=== PATIENT | male | born 1960 | race Caucasian/White ===

== ENCOUNTER 2018-01-13 09:19 | Emergency (ER) | END 2018-01-13 13:10 | disposition left against medical advice (07) ==

== ENCOUNTER 2018-01-22 07:03 | Inpatient (IN) | END 2018-01-30 14:40 | disposition home health service (06) | DRG 313 ==

== ENCOUNTER 2018-06-01 05:47 | Day surgery (SDC) | END 2018-06-01 12:03 | disposition home or self-care (01) ==

== ENCOUNTER 2018-11-04 13:09 | Inpatient (IN) | payer OTHER ==
[~2018-11-04] VITALS: Ht 167.6 cm; Wt 111.9 kg
[~2018-11-04 13:09] MED LIST: AMLO-218 PO; CEPH500C PO; GLYB5TAB3 PO; HYDROCHLOROTHIAZIDE; LANT3I SC; LISI-471 PO; NOVO3I SC
[2018-11-04] MEDS ORDERED: CEFTRIAXONE 1 GM/50 ML (PMX) 50 ML IVPB STA (13:23)
[2018-11-04] MEDS ORDERED: AZITHROMYCIN 500MG/NS (PMX) 250 ML IV STA (13:23)
[2018-11-04] MEDS ORDERED: ALBUTEROL 0.5% (NEB) 2.5 MG/0.5 ML AMP INH STA ×2 (13:23→14:37)
[2018-11-04] MEDS ORDERED: METHYLPREDNISOLONE 125 MG INJ IV ONE (13:30)
--- NOTE | 2018-11-04 14:25 | ERD ---
ER Documentation Chief Complaint Chief Complaint BIB nephew, resp distress, flushed, PNA for 2 weeks per nephew HPI This is a 58-year-old male who smokes a pack of cigarettes a day who is here for respiratory distress. The patient has been apparently treated for pneumonia for the past 2 weeks. The patient has had increased work of breathing and respiratory distress just prior to arrival. Patient denies any asthma or COPD history. Denies any fever. Patient says he has a lot of mucus in his throat but is unable to clear up. Says he keeps choking on his mucus. ROS All systems reviewed and are negative except as per history of present illness. Medications Home Meds Active Scripts Insulin Glargine* (Lantus*) 100 Unit/Ml Soln, 36 UNIT SC QHS for 30 Days, #1 VIAL Prov:BRISEYDA GIANG SENIOR OPERATOR 01/30/18 Insulin Aspart* (Novolog Insulin Pen*) 100 Unit/Ml Soln, 9 UNIT SC WITH MEALS for 30 Days, #1 VIAL Prov:BRISEYDA GIANG SENIOR OPERATOR 01/30/18 Reported Medications Amlodipine Besylate* (Amlodipine Besylate*) 10 Mg Tablet, 10 MG PO DAILY, #30 TAB 11/04/18 Hydrochlorothiazide* (Hydrochlorothiazide*) 25 Mg Tab, 25 MG PO DAILY, #30 TAB 11/04/18 Glyburide* (Glyburide*) 5 Mg Tablet, 5 MG PO DAILY, #30 TAB 11/04/18 Nitroglycerin* (Nitroglycerin* SL) 0.4 Mg Tab.subl, 0.4 MG SL Q5MIN PRN for CHEST PAIN, BOTTLE 11/04/18 Discontinued Reported Medications [Hydrochlorothiazide] No Conflict Check, DAILY 06/01/18 Cephalexin* (Cephalexin*) 500 Mg Capsule, 500 MG PO Q6, #28 CAP 06/01/18 Glyburide* (Glyburide*) 5 Mg Tablet, 5 MG PO DAILY, #30 TAB 06/01/18 Lisinopril* (Lisinopril*) 20 Mg Tablet, 20 MG PO DAILY, #30 TAB 06/01/18 Discontinued Scripts Amlodipine Besylate* (Norvasc*) 10 Mg Tablet, 10 MG PO DAILY for 30 Days, TAB Prov:AMIRA WANG MD 07/10/16 Allergies Allergies: Coded Allergies: No Known Allergy (Unverified , 11/04/18) PMhx/Soc History of Surgery: Yes (BILAT INGUINAL HERNIA, LEFT HAND SX) Anesthesia Reaction: No Hx Neurological Disorder: No Hx Respiratory Disorders: No Hx Cardiac Disorders: Yes (HTN, STOKE X6,SEIZURE 20 YRS AGO, HYPERLIPIDEMIA) Hx Psychiatric Problems: No Hx Miscellaneous Medical Probl: Yes (DM) Hx Alcohol Use: No Hx Substance Use: No Hx Tobacco Use: Yes (1pack/day) Smoking Status: Heavy tobacco smoker FmHx Family History: No coronary disease Physical Exam Vitals Vital Signs Date Temp Pulse Resp B/P (MAP) Pulse Ox O2 O2 Flow FiO2 Time Delivery Rate 11/04/18 83 100 100 15:23 11/04/18 98.1 77 20 150/97 100 BIPAP 14:30 (114) 11/04/18 80 100 100 13:34 11/04/18 98.1 75 25 175/131 89 13:09 (146) Physical Exam Const: Well-developed, well-nourished Head: Atraumatic, normocephalic Eyes: Normal Conjunctiva, PERRLA, EOMI, normal sclera, no nystagmus ENT: Normal External Ears, Nose and Mouth, moist mucus membranes. Neck: Full range of motion. No meningismus, no lymphadenopathy. Resp: Moderate to severe respiratory distress, decreased breath sounds bilaterally in the bases with s severe scattered wheezes Cardio: Tachycardia no murmurs, S1 S2 present Abd: Soft, non tender x 4, non distended. Normal bowel sounds, no guarding or rebound, no pulsitile abdominal masses or bruits Skin: No petechiae or rashes, no ecchymosis , no maculopapular rash Back: No midline or flank tenderness Ext: No cyanosis, or edema, FROM x 4, normal inspection, neurovas cularly intact x 4 Neur: Awake and alert, STR 5/5 x 4, sensation intact x 4, no focal findings, cerebellum intact Psych: Normal Mood and Affect Result Diagram: 11/04/18 1329 11/04/18 1329 Results 24 hrs Laboratory Tests Test 11/04/18 13:20 11/04/18 13:23 11/04/18 13:29 POC Venous Lactate 1.9 mmol/L Blood Gas Specimen Source Blood arterial Arterial Blood Date 11/04/2018 1:31:39 PM Drawn Arterial Blood pH 7.457 (Temp corrected) Arterial Blood pCO2 41.3 mmhg (Temp correct) Arterial Blood pO2 138.3 mmHG (Temp corrected) Arterial Blood HCO3 28.5 mmol/L Arterial Blood Base 4.2 mmol/L Excess Arterial Blood 98.5 mmHG Oxygen Saturation Mauricio Test ACCEPTAB Arterial Blood Gas Right Radial Puncture Site Arterial 2.9 % Blood Carboxyhemoglobin Arterial Blood 0.1 % Methemoglobin Blood Gas A-a O2 533.4 mmHg Differential Oxyhemoglobin Percent 95.5 % Blood Gas Temperature 37.0 C Blood Gas Respiration 16.0 Rate Blood Gas Actual 40 Respiration Rate Blood Gas Modality MASK - BIPAP FiO2 100.0 % Blood Gas Tidal Volume 424.0 mL Blood Gas Pressure 10 Support Blood Gas IPAP/EPAP Ratio 15/5 Blood Gas Notified Whom ROSALIND GARCIA Blood Gas Notified Time 11/04/2018 1:45:29 PM White Blood Count 9.7 10^3/ul Red Blood Count 5.19 10^6/ul Hemoglobin 15.9 g/dl Hematocrit 45.2 % Mean Corpuscular Volume 87.1 fl Mean Corpuscular 30.6 pg Hemoglobin Mean Corpuscular 35.2 g/dl Hemoglobin Concent Red Cell Distribution 14.7 % Width Platelet Count 349 10^3/UL Mean Platelet Volume 10.0 fl Immature Granulocytes % 0.900 % Neutrophils % 61.8 % Lymphocytes % 28.4 % Monocytes % 6.1 % Eosinophils % 2.1 % Basophils % 0.7 % Nucleated Red Blood Cells 0.0 /100WBC % Immature Granulocytes # 0.090 10^3/ul Neutrophils # 6.0 10^3/ul Lymphocytes # 2.8 10^3/ul Monocytes # 0.6 10^3/ul Eosinophils # 0.2 10^3/ul Basophils # 0.1 10^3/ul Nucleated Red Blood Cells 0.0 10^3/ul # Sodium Level 139 mmol/L Potassium Level 3.9 mmol/L Chloride Level 100 mmol/L Carbon Dioxide Level 30 mmol/L Anion Gap 9 Blood Urea Nitrogen 20 mg/dl Creatinine 0.81 mg/dl Est Glomerular Filtrat > 60 mL/min Rate mL/min Glucose Level 225 mg/dl Calcium Level 9.5 mg/dl Total Bilirubin 0.6 mg/dl Direct Bilirubin 0.00 mg/dl Indirect Bilirubin 0.6 mg/dl Aspartate Amino 55 IU/L Transf (AST/SGOT) Alanine 69 IU/L Aminotransferase (ALT/SGP T) Alkaline Phosphatase 93 IU/L Troponin I < 0.012 ng/ml B-Type Natriuretic 20 PG/ML Peptide Total Protein 9.1 g/dl Albumin 4.5 g/dl Globulin 4.60 g/dl Albumin/Globulin Ratio 0.97 Current Medications Medications Dose Sig/Btehany Start Time Status Last (Trade) Ordered Route PRN Stop Time Admin Dose Reason Admin 125 mg ONCE ONCE 11/04/18 DC 11/04/18 Methylprednis IV 13:30 13:39 olone Sodium 11/04/18 Succinate 13:31 (Solu-Medrol) Azithromycin 250 ml @ ONCE STAT 11/04/18 DC 11/04/18 250 mls/hr IV 13:23 14:42 11/04/18 14:22 Ceftriaxone 50 ml @ ONCE STAT 11/04/18 DC 11/04/18 Sodium 100 mls/hr IVPB 13:23 13:39 11/04/18 13:52 Albuterol 15 mg ONCE STAT 11/04/18 DC 11/04/18 (Proventil INH 13:23 13:28 0.5% (Neb)) 11/04/18 13:25 Albuterol 15 mg ONCE STAT 11/04/18 DC 11/04/18 (Proventil INH 14:37 15:18 0.5% (Neb)) 11/04/18 14:39 125 mg ONCE STAT 11/04/18 DC 11/04/18 Methylprednis IV 14:37 15:23 olone Sodium 11/04/18 Succinate 14:39 (Solu-Medrol) Procedures/MDM EKG: Rate/Rhythm: Normal Sinus Rhythm,NL intervals QRS, ST, QT: NORMAL [place], QRS, QT] Impression: NORMAL EKG Patient was emergently placed on BiPAP with a continuous albuterol nebulizer treatment, this therapy was effective and I was able to abort intubation Ordering MD: RIYA PINTO DO Location: E/R Room/Bed: PROCEDURE: XR Chest. CLINICAL INDICATION: Shortness of breath TECHNIQUE: Single portable view of the chest was obtained. COMPARISON: 01/26/2018 FINDINGS: Cardiac/vascular structures: Normal cardiomediastinal silhouette. Pulmonary: Right basilar airspace opacity.. No pleural effusion. No evidence of pneumothorax. Osseous structures: Normal Soft tissues: Normal IMPRESSION: Right basilar airspace opacity may represent atelectasis or pneumonia. RPTAT:AAJJ Blair Michael Physician Date Time Electronically viewed and signed by Blair Michael Physician on 11/04/2018 13:50 MH/ CC: RIYA PINTO DO [id number] Patient had 2 rounds of 15 mg albuterol continuous nebs and prednisone, Zithromax and Rocephin. Patient's respiratory status is much improved. We will need to admit him to the hospital for pulmonary therapy and IV antibiotics for pneumonia. He has a normal white blood count he is not appearing septic. He has a normal white count and no fever. He has had this infection therefore 2 weeks and is on antibiotics but unknown name. This is likely a partially treated pneumonia or the pneumonia is treated but not yet resolved. He does smoke a pack a day and has had diffuse severe wheezes throughout his lung goodman his respiratory distress may likely be due to an asthma/COPD type of picture versus infectious therefore I do not think a lactic acid is worth chasing Critical Care Time: 30 minutes Treatments/Evaluations: Close monitoring and treatment of unstable vital signs, cardiorespiratory, and neurologic status, while maintaining tight balance of fluid, respiratory, and cardiac interventions. This time includes discussing the case with the patient and the patient's family. This time does not include all procedures stated elsewhere in this record. This time also includes reviewing old records, labs and radiological studies. This time includes examining and re- examining the patient. Additionally, this time also includes arranging care with admitting and consulting physicians. Departure Diagnosis: Primary Impression: Respiratory distress Additional Impressions: Reactive airway disease Asthma severity: unspecified severity Asthma persistence: unspecified Asthma complication type: uncomplicated Qualified Codes: J45.909 - Unspecified asthma, uncomplicated Right lower lobe pulmonary infiltrate Condition: Fair RIYA PINTO DO Nov 04, 2018 14:25
[2018-11-04] MEDS ORDERED: METHYLPREDNISOLONE 125 MG INJ IV STA (14:37)
[2018-11-04] MEDS ORDERED: NITR0.4T32 SL (15:32)
[2018-11-04] MEDS ORDERED: HYDR25TA6 PO (15:33)
[2018-11-04] MEDS ORDERED: GLYB5TAB3 PO (15:33)
[2018-11-04] MEDS ORDERED: AMLO-147 PO (15:34)
[2018-11-04] MEDS ORDERED: SOD CHLORIDE 0.9% 1,000 ML IV SCH (16:42)
[2018-11-04] MEDS ORDERED: ONDANSETRON 4 MG INJ IV PRN (17:00)
[2018-11-04] MEDS ORDERED: ACETAMINOPHEN 325 MG TAB PO PRN (17:00)
[2018-11-04] MEDS ORDERED: GLUCOSE GEL 15 GRAM TUBE BUCCAL PRN (17:30)
[2018-11-04] MEDS ORDERED: DEXTROSE 50% 50 ML SYRINGE IV PRN ×2 (17:30)
[2018-11-04] MEDS ORDERED: GLUCOSE GEL 15 GRAM TUBE PO PRN ×2 (17:30)
[2018-11-04] MEDS ORDERED: GLUCAGON 1 MG INJ IM PRN (17:30)
--- NOTE | 2018-11-04 17:51 | HP ---
Date/Time of Note Date/Time of Note DATE: 11/04/18 TIME: 17:39 Assessment/Plan VTE Prophylaxis Pharmacological prophylaxis: heparin Lines/Catheters IV Catheter Type (from Nrs): Saline Lock Assessment/Plan Hospital Course 58 yo male with h/o tobacco use, dMII, obesity presents with two weeks progressive SOB in setting of LTRI symptoms as well as worsening peripheral edema SOB: - Likely LTRI induced bronchospasm, pulmonary edema may also be contributing. Suspect he has underlying COPD given heavy smoking history - Prednisone daily, nebs q6h - Levaquin course - Lasix once, unlikely chf though with normal BNP but confounded by obese habitus DMII: - Basal/bolus insulin Tobacco use d/o: - Nicotine patch Discharge pending clinical course Result Diagram: 11/04/18 1329 11/04/18 1329 Results 24hrs Laboratory Tests Test 11/04/18 13:20 11/04/18 13:23 11/04/18 13:29 POC Venous Lactate 1.9 Blood Gas Specimen Blood arterial Source Arterial Blood Date 11/04/2018 1:31:39 PM Drawn Arterial Blood pH 7.457 H (Temp corrected) Arterial Blood pCO2 41.3 (Temp correct) Arterial Blood pO2 138.3 H (Temp corrected) Arterial Blood HCO3 28.5 H Arterial Blood Base 4.2 H Excess Arterial Blood 98.5 H Oxygen Saturation Mauricio Test ACCEPTAB Arterial Blood Gas Right Radial Puncture Site Arterial 2.9 Blood Carboxyhemoglobin Arterial Blood 0.1 Methemoglobin Blood Gas A-a O2 533.4 H Differential Oxyhemoglobin Percent 95.5 Blood Gas Temperature 37.0 Blood Gas Respiration 16.0 Rate Blood Gas Actual 40 Respiration Rate Blood Gas Modality MASK - BIPAP FiO2 100.0 Blood Gas Tidal Volume 424.0 Blood Gas Pressure 10 Support Blood Gas IPAP/EPAP Ratio 15/5 Blood Gas Notified Whom ROSALIND GARCIA Blood Gas Notified Time 11/04/2018 1:45:29 PM White Blood Count 9.7 Red Blood Count 5.19 Hemoglobin 15.9 Hematocrit 45.2 Mean Corpuscular Volume 87.1 Mean Corpuscular 30.6 Hemoglobin Mean Corpuscular 35.2 Hemoglobin Concent Red Cell Distribution 14.7 H Width Platelet Count 349 Mean Platelet Volume 10.0 Immature Granulocytes % 0.900 H Neutrophils % 61.8 Lymphocytes % 28.4 Monocytes % 6.1 Eosinophils % 2.1 Basophils % 0.7 Nucleated Red Blood Cells 0.0 % Immature Granulocytes # 0.090 H Neutrophils # 6.0 Lymphocytes # 2.8 Monocytes # 0.6 Eosinophils # 0.2 Basophils # 0.1 Nucleated Red Blood Cells 0.0 # Sodium Level 139 Potassium Level 3.9 Chloride Level 100 Carbon Dioxide Level 30 Anion Gap 9 Blood Urea Nitrogen 20 Creatinine 0.81 Est Glomerular Filtrat > 60 Rate mL/min Glucose Level 225 H Calcium Level 9.5 Total Bilirubin 0.6 Direct Bilirubin 0.00 Indirect Bilirubin 0.6 Aspartate Amino 55 H Transf (AST/SGOT) Alanine 69 Aminotransferase (ALT/SGP T) Alkaline Phosphatase 93 Troponin I < 0.012 B-Type Natriuretic 20 Peptide Total Protein 9.1 H Albumin 4.5 Globulin 4.60 H Albumin/Globulin Ratio 0.97 HPI/ROS Admit Date/Time Admit Date/Time Hx of Present Illness 58 yo male with h/o DMII, obesity, heavy smoking h/o presents with two weeks progressive SOB Patient became sick with URI about two weeks ago. Over that time he has developed progressive dyspnea. Today felt he was suffocating. Arrived in ED in extremis. Given bipap, steroids, nebulizers. Now much better but still SOB PMH/Family/Social Past Medical History Medical History: diabetes Medications Current Medications Ondansetron HCl (Zofran Inj) 4 mg ER BRIDGE PRN IV NAUSEA AND/OR VOMITING; Start 11/04/18 at 17:00; Stop 11/05/18 at 16:59 Acetaminophen (Tylenol Tab) 650 mg ER BRIDGE PRN PO MILD PAIN(1-3)OR ELEVATED TEMP; Start 11/04/18 at 17:00; Stop 11/05/18 at 16:59 Prednisone (Prednisone) 40 mg DAILY PO ; Start 11/05/18 at 09:00 Albuterol/ Ipratropium (Duoneb) 3 ml Q6H RESP THERAPY HHN ; Start 11/04/18 at 20:00 Insulin Glargine (Lantus) 15 units DAILY@2000 SC ; Start 11/04/18 at 20:00 Insulin Aspart (Novolog Insulin Pen) NOVOLOG *MODERATE* ALGORITHM WITH MEALS BEDTIME SC ; Start 11/04/18 at 18:00 Miscellaneous Information 1 ea NOTE XX ; Start 11/04/18 at 17:30 Glucose (Glutose) 15 gm Q15M PRN PO DECREASED GLUCOSE; Start 11/04/18 at 17:30 Glucose (Glutose) 22.5 gm Q15M PRN PO DECREASED GLUCOSE; Start 11/04/18 at 17:30 Dextrose (D50w Syringe) 25 ml Q15M PRN IV DECREASED GLUCOSE; Start 11/04/18 at 17:30 Dextrose (D50w Syringe) 50 ml Q15M PRN IV DECREASED GLUCOSE; Start 11/04/18 at 17:30 Glucagon (Glucagen) 1 mg Q15M PRN IM DECREASED GLUCOSE; Start 11/04/18 at 17:30 Glucose (Glutose) 15 gm Q15M PRN BUCCAL DECREASED GLUCOSE; Start 11/04/18 at 17:30 Coded Allergies: No Known Allergy (Unverified , 11/04/18) Past Surgical History Past Surgical Hx: no surgical history Family History Significant Family History: no pertinent family hx, diabetes, hypertension Social History Alcohol Use: none Smoking Status: Current every day smoker Drug Use: none Exam/Review of Systems Vital Signs Vitals Vital Signs Date Temp Pulse Resp B/P (MAP) Pulse Ox O2 O2 Flow FiO2 Time Delivery Rate 11/04/18 73 100 50 17:14 11/04/18 14 144/77 BIPAP 16:46 (99) 11/04/18 98.1 14:30 Exam Exam Obese mild Tachypneic Mild distress Nonlabored Lungs with expiratory wheeze, poor air entry ++ JVD Obese belly ++ Peripheral edema b/l DAVIS LIMON MD Nov 04, 2018 17:50
[2018-11-04] MEDS ORDERED: FUROSEMIDE 40 MG INJ IV ONE (18:00)
[2018-11-04] MEDS ORDERED: SOD CHLORIDE 0.9% 100 ML ONE (18:08)
[2018-11-04] MEDS ORDERED: IOHEXOL 100 ML ONE (18:08)
[2018-11-04 19:14] VITALS: PULSE 91
[2018-11-04] MEDS: ALBUTEROL/IPRATROPIUM (NEB) 3 ML AMP HHN SCH (19:30)
[2018-11-04 19:47] VITALS: BP 179/83; PULSE 84; RESP 19
[2018-11-04 19:54] VITALS: PULSE 98
[2018-11-04 20:00] VITALS: PULSE 100; Ht 167.6 cm; Wt 111.9 kg
[2018-11-04] MEDS ORDERED: INSULIN GLARGINE [LANTus] (100 UNITS/ML) SYG SC SCH ×3 (20:00→21:00)
--- NOTE | 2018-11-04 21:04 | NUR ---
Procedure Ordered: CHEST ANGIO Reason for Exam Today: SOB Previous Exams: Allergies: NKA Current Medications Taken: Glucophage ( ) Metformin ( ) Previous reaction to contrast media: Yes ( ) No ( ) : Yes ( ) No (X ) Asthma: Yes ( ) No (X ) Diabetes: Yes (X ) No ( ) Myeloma: Yes ( ) No (X ) Heart Disease: Yes (X ) No ( ) Cardiac Disease: Yes (X ) No (X ) Kidney Disease: Yes ( ) No (X ) Vascular Disease: Yes ( ) No (X ) Patient Teaching done: Yes (X ) No ( ) Rn Sane Used: Yes ( ) No ( ) Name of Rn Sane: Language Used: As part of the test requested by your doctor, contrast media may be injected into your vein while the x-rays are being taken. Occasionally, reactions from IV contrast may occur. The physician and staff of this hospital are trained to treat these reactions. Select the type of Contrast that will be given to patient: Isovue 300 ( ) Isovue 370 ( ) Visipaque ( ) Cystografin ( ) Gastrographin ( ) Redi-cat ( ) Volumen ( ) OMNIPAQUE 350 (X) Amount of contrast to be given: 98 ML IV (X ) PO ( ) Date given: 11/04/18 Lab Values: BUN: 20 Creatinine: 0.81 Reason why contrast cannot be given: Location of patient pre-procedure: ER 20 Location of patient post procedure: ER 20
[2018-11-04] MEDS: AMLODIPINE 10 MG TAB PO SCH (21:07)
[2018-11-04 21:08] VITALS: PULSE 86
[2018-11-04] MEDS: HYDROCHLOROTHIAZIDE 25 MG TAB PO SCH (21:08)
--- NOTE | 2018-11-04 21:14 | NUR ---
Received new order to add another 2 units of novolog for BS of 323. Order noted and will carry out. Addendum: 11/05/18 at 0217 by ERIC PATEL RN received new order to give ativan 0.5 mg x1 PRN for anxiety. order noted and will carry out.
[2018-11-04] MEDS: INSULIN ASPART [NOVOLOG] 3 ML PEN SC SCH (21:17)
[2018-11-04] MEDS ORDERED: LORAZEPAM 0.5 MG TAB PO ONE (21:30)
[2018-11-04] MEDS ORDERED: INSULIN ASPART [NOVOLOG] 3 ML PEN SC ONE (21:30)
[2018-11-04 23:42] VITALS: PULSE 90
[2018-11-05] VITALS (14 sets, daily range): BP systolic 126–163; BP diastolic 53–77; PULSE 55–109; RESP 17–22
--- NOTE | 2018-11-05 00:19 | NUR ---
PATIENT WAS SO ANXIOUS AND TELLING RN TO TAKE OFF THE BIPAP, THIS HAS BEEN THE SECOND TIME THAT HE REQUESTED TO TAKE OFF THE BIPAP. HE SAID HE MIGHT BE CLAUSTROPHOBIC AND FEELS ANXIOUS WHENEVER HE IS ON THE BIPAP. PUT HIM ON 3LPM OXYGEN VIA NASAL CANNULA SATURATING AT 93%, RT AWARE. WILL CONTINUE MONITORING.
--- NOTE | 2018-11-05 02:14 | NUR ---
rechecked patient's blood sugar and it was 333. Informed Dr. Nuno, received new order.
[2018-11-05] MEDS ORDERED: INSULIN ASPART [NOVOLOG] 3 ML PEN SC ONE (02:30)
[2018-11-05] MEDS: ALBUTEROL/IPRATROPIUM (NEB) 3 ML AMP HHN SCH ×4 (03:04→19:39)
--- NOTE | 2018-11-05 06:33 | NUR ---
Patient arrived during change of shift last evening. Awake, alert and oriented x4. No pressure wounds except some redness on Both lower extremities and a skin tear on the back of the right lower leg. Patient was on and off on BIPAP, requesting to be taken off because he feels anxious on it. Finally patient is on O2 at 3LPM via nasal cannula and is saturating at 95%. For 2D ECHO today.
[2018-11-05] MEDS: INSULIN ASPART [NOVOLOG] 3 ML PEN SC SCH ×7 (08:00→21:00)
[2018-11-05] MEDS ORDERED: INSULIN ASPART [NOVOLOG] 3 ML PEN SC SCH (08:00)
[2018-11-05] MEDS ORDERED: FUROSEMIDE 20 MG INJ IV SCH (08:00)
[2018-11-05] MEDS: HYDROCHLOROTHIAZIDE 25 MG TAB PO SCH (09:02)
[2018-11-05] MEDS: AMLODIPINE 10 MG TAB PO SCH (09:03)
[2018-11-05] MEDS: predniSONE 20 MG TAB PO SCH (09:03)
--- NOTE | 2018-11-05 09:12 | NUR ---
11/04/18 2100 Blood sugar was not administered on EMAR. When AM dose was scanned, it automatically administered on the previous time.
[2018-11-05] MEDS: NICOTINE (21 MG/24 HR) PATCH TRANSDERM SCH (13:43)
--- NOTE | 2018-11-05 13:59 | PN ---
Date/Time of Note Date/Time of Note DATE: 11/05/18 TIME: 13:57 Assessment/Plan VTE Prophylaxis Risk score (from Nsg)>0 risk: 1 SCD applied (from Nsg): Yes Pharmacological prophylaxis: heparin Lines/Catheters IV Catheter Type (from Nrsg): Saline Lock Assessment/Plan Hospital Course 58 yo male with h/o tobacco use, dMII, obesity presents with two weeks progressive SOB in setting of LTRI symptoms as well as worsening peripheral edema SOB: - Likely LTRI induced bronchospasm. Suspect he has underlying COPD given heavy smoking history - Prednisone daily, nebs q6h - CT negative for infiltrate and no phlegm, will hold abx Peripheral edema 2/2 venous stasis - Gentle lasix for edema DMII: - Basal/bolus insulin Tobacco use d/o: - Nicotine patch Discharge pending clinical course Result Diagram: 11/04/18 1329 11/04/18 1329 Results 24hrs Laboratory Tests Test 11/04/18 21:05 11/04/18 22:38 11/05/18 02:10 11/05/18 08:01 Bedside Glucose 323 H 343 H 333 H 232 H Test 11/05/18 12:28 Bedside Glucose 243 H Subjective 24 Hr Interval Summary Free Text/Dictation Breathing improving CT-A negative for PE or infiltrate Still hypoxic Exam/Review of Systems Vital Signs Vitals Vital Signs Date Temp Pulse Resp B/P (MAP) Pulse Ox O2 O2 Flow FiO2 Time Delivery Rate 11/05/18 84 12:00 11/05/18 98.5 17 130/65 94 11:13 (86) 11/05/18 Nasal 2.0 09:02 Cannula 11/04/18 50 23:42 Intake and Output 11/04/18 11/04/18 11/05/18 1515:00 23:00 07:00 IntakeIntake Total 50 ml 1000 ml OutputOutput Total 1300 ml BalanceBalance 50 ml -300 ml Exam Obese A bit plethoric Breathing comfortably, still with expiratory wheezing Perihperal edema Medications Medications Current Medications Prednisone (Prednisone) 40 mg DAILY PO Last administered on 11/05/18at 09:03; Admin Dose 40 MG; Start 11/05/18 at 09:00 Albuterol/ Ipratropium (Duoneb) 3 ml Q6H RESP THERAPY HHN Last administered on 11/05/18at 08:51; Admin Dose 3 ML; Start 11/04/18 at 20:00 Insulin Aspart (Novolog Insulin Pen) NOVOLOG *MODERATE* ALGORITHM WITH MEALS BEDTIME SC Last administered on 11/05/18at 12:36; Admin Dose 6 UNIT; Start 11/04/18 at 18:00 Miscellaneous Information 1 ea NOTE XX ; Start 11/04/18 at 17:30 Glucose (Glutose) 15 gm Q15M PRN PO DECREASED GLUCOSE; Start 11/04/18 at 17:30 Glucose (Glutose) 22.5 gm Q15M PRN PO DECREASED GLUCOSE; Start 11/04/18 at 17:30 Dextrose (D50w Syringe) 25 ml Q15M PRN IV DECREASED GLUCOSE; Start 11/04/18 at 17:30 Dextrose (D50w Syringe) 50 ml Q15M PRN IV DECREASED GLUCOSE; Start 11/04/18 at 17:30 Glucagon (Glucagen) 1 mg Q15M PRN IM DECREASED GLUCOSE; Start 11/04/18 at 17:30 Glucose (Glutose) 15 gm Q15M PRN BUCCAL DECREASED GLUCOSE; Start 11/04/18 at 17:30 Amlodipine Besylate (Norvasc) 10 mg DAILY PO Last administered on 11/05/18at 09:03; Admin Dose 10 MG; Start 11/04/18 at 20:00 Hydrochlorothiazide (Hydrochlorothiazide) 25 mg DAILY PO Last administered on 11/05/18at 09:02; Admin Dose 25 MG; Start 11/04/18 at 20:00 Influenza Virus Vaccine Quadrival (Fluzone) 0.5 ml ONCE ONCE IM* ; Start 11/06/18 at 10:00; Stop 11/06/18 at 10:01 Insulin Aspart (Novolog Insulin Pen) 12 unit WITH MEALS SC Last administered on 11/05/18at 12:35; Admin Dose 12 UNIT; Start 11/05/18 at 12:00 Insulin Glargine (Lantus) 35 units DAILY@2000 SC ; Start 11/05/18 at 20:00 Nicotine (Nicoderm 21 Mg/ 24hr) 1 patch DAILY TRANSDERM Last administered on 11/05/18at 13:43; Admin Dose 1 PATCH; Start 11/05/18 at 11:30 Empaglifozin (Jardiance) 10 mg DAILY@08 PO ; Start 11/05/18 at 15:00 DAVIS LIMON MD Nov 05, 2018 13:59
[2018-11-05] MEDS: EMPAGLIFLOZIN 10 MG TABLET PO SCH (15:46)
[2018-11-05] MEDS: FUROSEMIDE 20 MG TAB PO SCH (15:46)
[2018-11-05] MEDS ORDERED: LORAZEPAM 1 MG TAB PO ONE ×2 (17:30→18:00)
[2018-11-05] MEDS ORDERED: LORAZEPAM 4 MG/ML VIAL IV ONE (18:30)
--- NOTE | 2018-11-05 18:51 | NUR ---
EOSS Pt remained A/O x 4, denied pain all shift. Pt had an episode of panic attack that lasted for 1 hour. Pt was hyperventilating and crying out. C/o chest pressure that was not related to chest pain. Ativan 1 mg PO was administered. Dr. Leggett made aware, assessed patient at bedside, ordered another 1 mg IV once. Pt is currently Calm, resting comfortably, friends at bedside. Will endorse care to oncoming RN.
[2018-11-05] MEDS ORDERED: INSULIN GLARGINE [LANTus] (100 UNITS/ML) SYG SC SCH (20:00)
--- NOTE | 2018-11-05 20:26 | RADRPT ---
Echocardiogram Report Patient Name: NELSON PARISH Gender: Male Date: 1960 Study Date: 05-Nov-2018 Skidder Runner: Julian Cota [facility] Location: 626-A Ref. Physician: DAVIS LIMON Quality: Technically Difficult Study Procedures: Transthoracic echocardiogram with complete 2D, M-Mode, and doppler examination. Indications: Congestive Heart Failure. 2D/M Mode Doppler Measurement Value Normal Ranges Measurement Value Normal Ranges LVIDd 2D 3.7 3.5 - 5.6 cm AV Peak Harley 1.7 m/sec LVIDs 2D 2.6 2.1 - 4.1 cm AV Peak PG 12.0 mmHg FS 2D 29.9 % LVOT Peak Harley 1.3 m/sec LVPWd 2D 1.3 0.6 - 1.1 cm LVOT Peak PG 7.0 mmHg IVSd 2D 1.5 0.6 - 1.1 cm MV E Peak Harley 0.9 m/sec IVS/LVPW 2D 1.2 MV A Peak Harley 1.4 m/sec AoR Diam 2D 3.5 2.0 - 3.7 cm MV E/A 0.6 LA/Ao 2D 1 0 - 1 MV Decel Time 165 msec EDV 2D 49.8 cm3 MV E/A 0.6 ESV 2D 17.2 cm3 TR Peak Harley 2.1 m/sec LA Dimen 2D 3.9 2.3 - 4.0 cm TR Peak PG 17.0 mmHg RVSP 27.0 mmHg Findings Left Ventricle: Normal left ventricular systolic function. Normal left ventricular cavity size. Sigmoid septum. Mild concentric left ventricular hypertrophy. Ejection fraction is visually estimated at 65 %. Tissue Doppler/Mitral Doppler indices are consistent with impaired relaxation (Stage I diastolic dysfunction). Right Ventricle: Normal right ventricular size. Normal right ventricular systolic function. Left Atrium: The left atrium is normal in size. Right Atrium: The right atrium is normal in size. Mitral Valve: Mild mitral leaflet calcification. Mild mitral annular calcification. Trace mitral regurgitation. Aortic Valve: No significant aortic stenosis or insufficiency. Aortic cusps appear mildly calcified. No aortic regurgitation. Tricuspid Valve: Normal appearance of the tricuspid valve. Estimated peak PA systolic pressure 27 mmHg. There is mild tricuspid regurgitation. Pulmonic Valve: Pulmonic valve not well visualized. There is trace pulmonic regurgitation. Pericardium: Normal pericardium with no significant pericardial effusion. Aorta: Normal aortic root. IVC: Normal size and normal respiratory collapse consistent with normal right atrial pressure. Conclusions Normal left ventricular systolic function. Normal left ventricular cavity size. Sigmoid septum. Mild concentric left ventricular hypertrophy. Ejection fraction is visually estimated at 65 %. Tissue Doppler/Mitral Doppler indices are consistent with impaired relaxation (Stage I diastolic dysfunction). Mild mitral leaflet calcification. Mild mitral annular calcification. Trace mitral regurgitation. No significant aortic stenosis or insufficiency. Aortic cusps appear mildly calcified. No aortic regurgitation. Normal appearance of the tricuspid valve. Estimated peak PA systolic pressure 27 mmHg. There is mild tricuspid regurgitation. Electronically Signed By: Mario Alberto Guallpa 05-Nov-2018 20:25:44 -0800 Patient Name: NELSON PARISH Study Date: 05-Nov-2018 [id number]
[2018-11-06] VITALS (8 sets, daily range): BP systolic 102–166; BP diastolic 62–80; PULSE 78–100; RESP 18–20
[2018-11-06] MEDS: ALBUTEROL/IPRATROPIUM (NEB) 3 ML AMP HHN SCH (01:20)
[2018-11-06] MEDS: FUROSEMIDE 20 MG TAB PO SCH (05:23)
--- NOTE | 2018-11-06 06:53 | NUR ---
Pt AOx4, ambulatory but is currently on complete bedrest, pt educated about being on bedrest. VS Stable. Sinus rhythm to SFritzTachy on monitor No complaints of pain Glucose 249 at 1999. Pt also mentioned he had a history of stroke and heart attack. Pt says [facility]. WOCN consult placed. Hourly rounding done Needs attended
[2018-11-06] MEDS: NICOTINE (21 MG/24 HR) PATCH TRANSDERM SCH (08:15)
[2018-11-06] MEDS: AMLODIPINE 10 MG TAB PO SCH (08:16)
[2018-11-06] MEDS: HYDROCHLOROTHIAZIDE 25 MG TAB PO SCH (08:16)
[2018-11-06] MEDS: predniSONE 20 MG TAB PO SCH (08:16)
[2018-11-06] MEDS: EMPAGLIFLOZIN 10 MG TABLET PO SCH (08:17)
[2018-11-06] MEDS: INSULIN ASPART [NOVOLOG] 3 ML PEN SC SCH ×4 (08:24→12:54)
[2018-11-06] MEDS ORDERED: ALPRAZOLAM 0.5 MG TAB PO PRN (10:30)
[2018-11-06] MEDS ORDERED: LINAGLIPTIN 5 MG TABLET PO SCH (10:30)
[2018-11-06] MEDS ORDERED: ALBU8.5H8 INH (11:48)
[2018-11-06] MEDS ORDERED: BUDE6HFA INHALATION (11:48)
[2018-11-06] MEDS ORDERED: PRED20TA PO (11:48)
[2018-11-06] MEDS ORDERED: NICO-546 TD (11:49)
--- NOTE | 2018-11-06 11:50 | PDOCDIS ---
Discharge Instructions DIAGNOSIS Discharge Diagnosis COPD exacerbation CONDITION [id number] Patient Condition: [id number] Stable HOME CARE INSTRUCTIONS: [id number] Special Diet: Evlkg5d carb controlled diet FOLLOW UP/APPOINTMENTS Follow-up Plan See your doctor very soon or make an appointment with a military equipment specialist (lung specialist). You likely have COPD and require testing and treatment for this DAVIS LIMON MD Nov 06, 2018 11:50
--- NOTE | 2018-11-06 13:15 | NUR ---
SS Note: SS Consult SWer met w/ pt at bedside to clarify his d/c disposition. Pt presents as clam and congenial towards SWer, acknowledged reason for visiting and stated "I don't need any SS assistance, I'm going back to my previous living arrangement." SWer acknowledged, thanked pt for his time and updated RN. Pt getting dressed, awaiting d/c papers. CM aware
--- NOTE | 2018-11-06 13:34 | DS ---
Date/Time of Note Date/Time of Note DATE: 11/06/18 TIME: 13:32 Discharge Summary Admission/Discharge Info Admit Date/Time Nov 04, 2018 at 16:43 Discharge Date/Time Discharge Diagnosis COPD exacerbation Patient Condition: Stable Hx of Present Illness 58 yo male with h/o DMII, obesity, heavy smoking h/o presents with two weeks progressive SOB Patient became sick with URI about two weeks ago. Over that time he has developed progressive dyspnea. Today felt he was suffocating. Arrived in ED in extremis. Given bipap, steroids, nebulizers. Now much better but still SOB Hospital Course 58 yo male with h/o tobacco use, dMII, obesity presents with two weeks progressive SOB in setting of LTRI symptoms as well as worsening peripheral edema Exam was notable for diffuse wheezing consistent with COPD exacerbation. He was treated with steroids and bronchodilators and symptoms resolved. CT-A was negative for PE or infiltrate. His hyperglycemia was treated with insulin. He was advised to have pulmonary function testing performed as an outpatient. Smoking cessation was advised and nicotine patch was prescribed Home Meds Active Scripts Nicotine* (Nicotine* Patch) 21 mg/day Patch, 1 EACH TD DAILY for 60 Days, #60 PATCH 5 Refills Prov:DAVIS LIMON MD 11/06/18 Albuterol Sulfate* (Proair HFA*) 8.5 Gm Hfa.aer.ad, 2 PUFF INH Q4H PRN for WHEEZING AND SOB, #1 INHALER 5 Refills Prov:DAVIS LIMON MD 11/06/18 Budesonide-Formoterol Fumarate* (Symbicort*) 160-4.5 Hfa.aer.ad, 2 PUFF INHALATION BID, #1 EACH 5 Refills Prov:DAVIS LIMON MD 11/06/18 Prednisone* (Prednisone*) 20 Mg Tab, 40 MG PO DAILY for 3 Days, #3 TAB Prov:DAVIS LIMON MD 11/06/18 Insulin Glargine* (Lantus*) 100 Unit/Ml Soln, 36 UNIT SC QHS for 30 Days, #1 VIAL Prov:BRISEYDA GIANG NP 01/30/18 Insulin Aspart* (Novolog Insulin Pen*) 100 Unit/Ml Soln, 9 UNIT SC WITH MEALS for 30 Days, #1 VIAL Prov:BRISEYDA GIANG NP 01/30/18 Reported Medications Amlodipine Besylate* (Amlodipine Besylate*) 10 Mg Tablet, 10 MG PO DAILY, #30 TAB 11/04/18 Hydrochlorothiazide* (Hydrochlorothiazide*) 25 Mg Tab, 25 MG PO DAILY, #30 TAB 11/04/18 Glyburide* (Glyburide*) 5 Mg Tablet, 5 MG PO DAILY, #30 TAB 11/04/18 Nitroglycerin* (Nitroglycerin* SL) 0.4 Mg Tab.subl, 0.4 MG SL Q5MIN PRN for CHEST PAIN, BOTTLE 11/04/18 Discontinued Reported Medications [Hydrochlorothiazide] No Conflict Check, DAILY 06/01/18 Cephalexin* (Cephalexin*) 500 Mg Capsule, 500 MG PO Q6, #28 CAP 06/01/18 Glyburide* (Glyburide*) 5 Mg Tablet, 5 MG PO DAILY, #30 TAB 06/01/18 Lisinopril* (Lisinopril*) 20 Mg Tablet, 20 MG PO DAILY, #30 TAB 06/01/18 Discontinued Scripts Amlodipine Besylate* (Norvasc*) 10 Mg Tablet, 10 MG PO DAILY for 30 Days, TAB Prov:AMIRA WANG MD 07/10/16 Follow-up Plan See your doctor very soon or make an appointment with a soil sampler (lung specialist). You likely have COPD and require testing and treatment for this Primary Care Provider Mary Becerra DO Pending Labs Laboratory Tests Test 11/05/18 18:10 11/05/18 20:28 11/06/18 02:55 11/06/18 04:53 Bedside 287 249 147 Glucose mg/dL (70-220) mg/dL (70-220) mg/dL (70-220) White Blood 19.7 Count 10^3/ul (4.8-1 0.8) Red Blood 5.04 Count 10^6/ul (4.70- 6.10) Hemoglobin 15.3 g/dl (14.0-18. 0) Hematocrit 45.0 % (42.0-52.0) Mean 89.3 Corpuscular fl (82.0-101.0 Volume ) Mean 30.4 Corpuscular pg (29.0-33.0) Hemoglobin Mean 34.0 Corpuscular g/dl (32.0-37. Hemoglobin Conc 0) ent Red Cell 14.7 Distribution % (11.5-14.5) Width Platelet Count 362 10^3/UL (140-4 15) Mean Platelet 9.9 Volume fl (7.4-10.4) Immature 0.700 Granulocytes % % (0.001-0.429 ) Neutrophils % 85.5 % (39.0-77.0) Lymphocytes % 9.3 % (15.0-51.0) Monocytes % 4.2 % (0.0-11.0) Eosinophils % 0.1 % (0.0-7.0) Basophils % 0.2 % (0.0-2.0) Nucleated Red 0.0 Blood Cells % /100WBC (0.0-0 .0) Immature 0.140 Granulocytes # 10^3/ul (0.0-0 .031) Neutrophils # 16.9 10^3/ul (1.6-7 .5) Lymphocytes # 1.8 10^3/ul (0.8-2 .9) Monocytes # 0.8 10^3/ul (0.3-0 .9) Eosinophils # 0.0 10^3/ul (0.0-0 .5) Basophils # 0.0 10^3/ul (0.0-0 .1) Nucleated Red 0.0 Blood Cells # 10^3/ul (0.0-0 .0) Sodium Level 147 mmol/L (135-14 4) Potassium 3.6 Level mmol/L (3.5-5. 1) Chloride Level 101 mmol/L (97-110 ) Carbon Dioxide 34 Level mmol/L (21-31) Anion Gap 12 (5-13) Blood Urea 35 Nitrogen mg/dl (7-20) Creatinine 1.13 mg/dl (0.61-1. 24) Est Glomerular > 60 Filtrat mL/min (>60) Rate mL/min Glucose Level 153 mg/dl (70-220) Hemoglobin A1c 5.9 % (0-5.9) Calcium Level 9.7 mg/dl (8.4-10. 2) Test 11/06/18 07:43 11/06/18 12:02 Bedside 241 346 Glucose mg/dL (70-220) mg/dL (70-220) DAVIS LIMON MD Nov 06, 2018 13:34
--- NOTE | 2018-11-06 14:07 | NUR ---
WOUND CONSULT NOTE: 58 year old male known to the services of Dr. Prasad and Dr. Conrad presented for shortness of breath and possible COPD exacerbation given his current smoking history. Patient is also a known diabetic and has been followed at [facility] [place] last seen by on 10/29/18 with resolved diabetic foot wounds. Patient was instructed to wear compression stockings which he states has been complying. Patient reports has an upcoming vascular exam w/ Dr. Conrad in the next few weeks. On exam there is evidence of bilateral 1/2+ edema with brown hyperpigmentation and hemosiderin staining and hyperkeratotic skin with scattered dry stable scabs. Patient is ambulatory and can turn freely. Currently on nasal cannula with plans of discharge today ASSESSMENT AND RECOMMENDATIONS: 1. Right posterior leg open partial thickness blister vs skin tear which is dry without any drainage 2. Left anterolateral lower leg intact serum filled bullae due to lower extremity edema. Condition not documented on admission -If patient remains in-house, wash area with mild soap and water. Smooth down the skin flap that remains. May apply small amount of Xeroform dressing, cover with kerlix roll and secure with tape. -Reduction of edema and and corrected fluid balance per medical management to reduce size and recurrence of bullae. -Recommend to elevate legs while in bed to reduce edema -Patient was instructed to wear his compression stockings once discharged as per instructions of DPM/Vascular and to follow up with [facility] center if open wounds noted Patient was seen and examined and plan of care and recommendations were discussed with primary RNTom. Thank you Monica Plata, RN, MSN, CCRN, C
== END 2018-11-06 14:06 | disposition home or self-care (01) | DRG 192 ==
LOC: E/R 13:09 → 6WM 16:43
PROVIDERS: ADMIT Internal Medicine; ATTEND Internal Medicine
PROC: 4A033R1 Measurement of Arterial Saturation, Peripheral, Percutaneous Approach (ICD-10-PCS; principal; 2018-11-04)
PROC: 3E0234Z Introduction of Serum, Toxoid and Vaccine into Muscle, Percutaneous Approach (ICD-10-PCS; 2018-11-06)
DX: J44.1 Chronic obstructive pulmonary disease with (acute) exacerbation (principal); E11.9 Type 2 diabetes mellitus without complications; E78.5 Hyperlipidemia, unspecified; I10 Essential (primary) hypertension; E66.9 Obesity, unspecified; F17.210 Nicotine dependence, cigarettes, uncomplicated; Z79.4 Long term (current) use of insulin; Z86.73 Personal history of transient ischemic attack (TIA), and cerebral infarction without residual deficits; Z23 Encounter for immunization
CPT/HCPCS: 36415; 36600; 71045; 71275; 80048; 80053; 82803; 82962; 83036; 83605; 83880; 84484; 85025; 87040; 90686; 93005; 93306; 94640; 94644; 94645; 94660; 96365; 96375; 96376; J0456; J0696; J1815; J1940; J2060; J2930; J7030; J7512; Q9967

== ENCOUNTER 2018-11-24 10:39 | Inpatient (IN) | payer OTHER ==
[~2018-11-24] VITALS: Ht 175.3 cm; Wt 90.0 kg
[~2018-11-24 10:39] MED LIST changes: +ALBU8.5H8 INH; +AMLO-147 PO; -AMLO-218 PO; +BUDE6HFA INHALATION; -CEPH500C PO; +HYDR25TA6 PO; -HYDROCHLOROTHIAZIDE; -LISI-471 PO; +NICO-546 TD; +NITR0.4T32 SL; +PRED20TA PO
[2018-11-24] MEDS ORDERED: ALBUTEROL 0.083% (NEB) 2.5 MG/3 ML AMP HHN STA (10:51)
[2018-11-24] MEDS ORDERED: ALPR0.254 PO (11:34)
--- NOTE | 2018-11-24 13:38 | ERD ---
ER Documentation Chief Complaint Chief Complaint SOB X FEW WEEKS HPI 58-year-old male presents to the emergency department by private vehicle complaining of shortness of breath. Patient has a history of COPD with multiple admissions. Patient states that he has been intermittently compliant with his medications. Recently, has become increasingly short of breath. He reports no chest pain or palpitations, no fevers or sputum production. He reports no hemoptysis. ROS All systems reviewed and are negative except as per history of present illness. Medications Home Meds Active Scripts Nicotine* (Nicotine* Patch) 21 mg/day Patch, 1 EACH TD DAILY for 60 Days, #60 PATCH 5 Refills Prov:DAVIS LIMON MD 11/06/18 Albuterol Sulfate* (Proair HFA*) 8.5 Gm Hfa.aer.ad, 2 PUFF INH Q4H PRN for WHEEZING AND SOB, #1 INHALER 5 Refills Prov:DAVIS LIMON MD 11/06/18 Budesonide-Formoterol Fumarate* (Symbicort*) 160-4.5 Hfa.aer.ad, 2 PUFF INHALATION BID, #1 EACH 5 Refills Prov:DAVIS LIMON MD 11/06/18 Insulin Glargine* (Lantus*) 100 Unit/Ml Soln, 36 UNIT SC QHS for 30 Days, #1 VIAL Prov:BRISEYDA GIANG NAIL EXPERT 01/30/18 Insulin Aspart* (Novolog Insulin Pen*) 100 Unit/Ml Soln, 9 UNIT SC WITH MEALS for 30 Days, #1 VIAL Prov:BRISEYDA GIANG NAIL EXPERT 01/30/18 Reported Medications Alprazolam* (Alprazolam*) 0.25 Mg Tablet, 0.25 MG PO DAILY PRN for ANXIETY, TAB 11/24/18 Amlodipine Besylate* (Amlodipine Besylate*) 10 Mg Tablet, 10 MG PO DAILY, #30 TAB 11/04/18 Hydrochlorothiazide* (Hydrochlorothiazide*) 25 Mg Tab, 25 MG PO DAILY, #30 TAB 11/04/18 Glyburide* (Glyburide*) 5 Mg Tablet, 5 MG PO DAILY, #30 TAB 11/04/18 Nitroglycerin* (Nitroglycerin* SL) 0.4 Mg Tab.subl, 0.4 MG SL Q5MIN PRN for CHEST PAIN, BOTTLE 11/04/18 Discontinued Scripts Prednisone* (Prednisone*) 20 Mg Tab, 40 MG PO DAILY for 3 Days, #3 TAB Prov:DAVIS LIMON MD 11/06/18 Allergies Allergies: Coded Allergies: No Known Allergy (Unverified , 11/24/18) PMhx/Soc History of Surgery: Yes (LEFT HAND SURGERY) Anesthesia Reaction: No Hx Neurological Disorder: Yes (SEIZURES 20 YRS AGO) Hx Respiratory Disorders: No Hx Cardiac Disorders: Yes (HTN) Hx Psychiatric Problems: No Hx Miscellaneous Medical Probl: Yes (BILATERAL INGUINAL HERNIA, HYPERLIPIDEMIA) Hx Alcohol Use: No Hx Substance Use: No Hx Tobacco Use: No Smoking Status: Current every day smoker FmHx Noncontributory for chief complaint Physical Exam Vitals Vital Signs Date Temp Pulse Resp B/P (MAP) Pulse Ox O2 O2 Flow FiO2 Time Delivery Rate 11/24/18 87 20 99 Nasal 2.0 12:00 Cannula 11/24/18 2.0 12:00 11/24/18 Nasal 2 11:32 Cannula 11/24/18 98.5 107 18 149/96 99 10:41 (113) Physical Exam GENERAL: Plethoric male who appears in mild to moderate respiratory distress HEENT: Pupils equal, round, and reactive to light. EOMI. There is no scleral icterus. NECK: C-spine is soft and supple, there is no meningismus. There is no cervical lymphadenopathy. LUNGS: Rhonchi bilaterally. Patient is tachypneic without retractions HEART: Regular rate and rhythm, no murmurs, clicks, rubs or gallops. ABDOMEN: Soft, non-tender, non-distended. There are bowel sounds in all four quadrants. No rebound or guarding. EXTREMITIES: There is no peripheral cyanosis or edema. No focal swelling or erythema. NEURO: The patient moves all four extremities with 5/5 strength. Cranial nerves II - XII are intact. Normal gait. Alert and oriented SKIN: There is no apparent rash or petechiae. HEME/LYMPHATIC: There is no evidence of excessive bruising or lymphedema. PSYCHIATRIC: The patient does not appear anxious or depressed. Result Diagram: 11/24/18 1130 11/24/18 1130 Results 24 hrs Laboratory Tests Test 11/24/18 11:30 White Blood Count 13.5 10^3/ul Red Blood Count 4.84 10^6/ul Hemoglobin 14.6 g/dl Hematocrit 42.9 % Mean Corpuscular Volume 88.6 fl Mean Corpuscular Hemoglobin 30.2 pg Mean Corpuscular Hemoglobin Concent 34.0 g/dl Red Cell Distribution Width 15.5 % Platelet Count 322 10^3/UL Mean Platelet Volume 9.8 fl Immature Granulocytes % 0.400 % Neutrophils % 81.8 % Lymphocytes % 11.6 % Monocytes % 5.3 % Eosinophils % 0.5 % Basophils % 0.4 % Nucleated Red Blood Cells % 0.0 /100WBC Immature Granulocytes # 0.060 10^3/ul Neutrophils # 11.1 10^3/ul Lymphocytes # 1.6 10^3/ul Monocytes # 0.7 10^3/ul Eosinophils # 0.1 10^3/ul Basophils # 0.1 10^3/ul Nucleated Red Blood Cells # 0.0 10^3/ul Prothrombin Time 13.1 Sec Prothrombin Time Ratio 1.0 INR International Normalized Ratio 0.98 Activated Partial Thromboplast Time 34.4 Sec Sodium Level 140 mmol/L Potassium Level 3.9 mmol/L Chloride Level 99 mmol/L Carbon Dioxide Level 28 mmol/L Anion Gap 13 Blood Urea Nitrogen 17 mg/dl Creatinine 1.06 mg/dl Est Glomerular Filtrat Rate mL/min > 60 mL/min Glucose Level 178 mg/dl Calcium Level 9.3 mg/dl Total Bilirubin 1.4 mg/dl Direct Bilirubin 0.00 mg/dl Indirect Bilirubin 1.4 mg/dl Aspartate Amino Transf (AST/SGOT) 37 IU/L Alanine Aminotransferase (ALT/SGPT) 38 IU/L Alkaline Phosphatase 85 IU/L Troponin I < 0.012 ng/ml B-Type Natriuretic Peptide 78 PG/ML Total Protein 8.8 g/dl Albumin 4.7 g/dl Globulin 4.10 g/dl Albumin/Globulin Ratio 1.14 Current Medications Medications Dose Sig/Bethany Start Time Status Last (Trade) Ordered Route PRN Stop Time Admin Dose Reason Admin Albuterol 5 mg ONCE STAT 11/24/18 DC 11/24/18 (Proventil HHN 10:51 10:51 0.083% (Neb)) 11/24/18 10:52 Procedures/MDM Patient was taken to a room, seen and evaluated. Comfort measures were initiated. Diagnostic tests were ordered and reviewed. 3 LEAD RHYTHM STRIP: [Normal sinus rhythm without ectopy] EK lead EKG reviewed by myself: [Normal Sinus Rhythm] Rightward axis deviation Nonspecific ST and T wave changes without ST elevation Impression: Nonspecific EKG RADIOLOGY: [reviewed with the radiologist] CONSULTATION: [hospitalist] was notified for admission REEVALUATION: 1335: Diagnostic tests were appreciated. Arrangements were made for admission to the hospital MEDICAL DECISION MAKING: Patient presents for shortness of breath. Differential diagnosis entertained included asthma, pneumonia, other cardiac and pulmonary concerns. After reviewing the patient's diagnostic tests and clinical presentation, patient appears to have decompensated COPD. Patient has a normal BNP and does not appear to be in congestive heart failure at this time. Patient will be adm itted for observation. Departure Diagnosis: Primary Impression: COPD (chronic obstructive pulmonary disease) Condition: ALFREDITO Durán Nov 24, 2018 13:38
[2018-11-24] MEDS ORDERED: METHYLPREDNISOLONE 125 MG INJ IV ONE (14:00)
--- NOTE | 2018-11-24 15:39 | HP ---
Date/Time of Note Date/Time of Note DATE: 11/24/18 TIME: 15:35 Assessment/Plan VTE Prophylaxis Pharmacological prophylaxis: LMWH Lines/Catheters IV Catheter Type (from Nrs): Saline Lock Assessment/Plan Hospital Course 1. COPD exacerbation IV antibiotics and steroids Breathing treatments 2. Diabetes Continue insulin regimen 3. Hypertension Continue meds 4. Morbid obesity Lifestyle changes 5. Leukocytosis possible secondary to COPD exacerbation versus reactive or secondary to recent steroids Antibiotics Prophylaxis: Lovenox Result Diagram: 11/24/18 1130 11/24/18 1130 Results 24hrs Laboratory Tests Test 11/24/18 11:30 White Blood Count 13.5 #H Red Blood Count 4.84 Hemoglobin 14.6 Hematocrit 42.9 Mean Corpuscular Volume 88.6 Mean Corpuscular Hemoglobin 30.2 Mean Corpuscular Hemoglobin Concent 34.0 Red Cell Distribution Width 15.5 H Platelet Count 322 Mean Platelet Volume 9.8 Immature Granulocytes % 0.400 Neutrophils % 81.8 H Lymphocytes % 11.6 L Monocytes % 5.3 Eosinophils % 0.5 Basophils % 0.4 Nucleated Red Blood Cells % 0.0 Immature Granulocytes # 0.060 H Neutrophils # 11.1 H Lymphocytes # 1.6 Monocytes # 0.7 Eosinophils # 0.1 Basophils # 0.1 Nucleated Red Blood Cells # 0.0 Prothrombin Time 13.1 Prothrombin Time Ratio 1.0 INR International Normalized Ratio 0.98 Activated Partial Thromboplast Time 34.4 Sodium Level 140 Potassium Level 3.9 Chloride Level 99 Carbon Dioxide Level 28 Anion Gap 13 Blood Urea Nitrogen 17 Creatinine 1.06 Est Glomerular Filtrat Rate mL/min > 60 Glucose Level 178 Calcium Level 9.3 Total Bilirubin 1.4 H Direct Bilirubin 0.00 Indirect Bilirubin 1.4 H Aspartate Amino Transf (AST/SGOT) 37 Alanine Aminotransferase (ALT/SGPT) 38 Alkaline Phosphatase 85 Troponin I < 0.012 B-Type Natriuretic Peptide 78 Total Protein 8.8 H Albumin 4.7 Globulin 4.10 H Albumin/Globulin Ratio 1.14 HPI/ROS Admit Date/Time Admit Date/Time November 24, 2018 Hx of Present Illness Patient is a 58-year-old male with a history of diabetes, obesity, tobacco abuse with COPD. Patient presents with acute shortness of breath that began last night. Patient presented to school with similar symptoms. Patient has no other complaints at this time. ROS Constitutional: no complaints, improved Eyes: no complaints ENT: no complaints Respiratory: shortness of breath Cardiovascular: no complaints Gastrointestinal: no complaints Genitourinary: no complaints Musculoskeletal: no complaints Skin: no complaints Neurologic: no complaints Endocrine: no complaints Lymphatic: no complaints Psychological: no complaints, nl mood/affect Immunologic: no complaints PMH/Family/Social Past Medical History As per HPI Coded Allergies: No Known Allergy (Unverified , 11/24/18) Past Surgical History Past Surgical Hx: no surgical history Family History Significant Family History: no pertinent family hx, diabetes, hypertension Social History Alcohol Use: rarely Smoking Status: Current every day smoker Drug Use: none Exam/Review of Systems Vital Signs Vitals Vital Signs Date Temp Pulse Resp B/P (MAP) Pulse Ox O2 O2 Flow FiO2 Time Delivery Rate 11/24/18 93 18 132/94 99 Room Air 13:46 (107) 11/24/18 2.0 12:00 11/24/18 98.5 10:41 Exam Constitutional: alert, oriented Respiratory: clear to auscultation Cardiovascular: regular rate and rhythm Gastrointestinal: soft; No distended Musculoskeletal: nl extremities to inspection MELITA CARRANZA Nov 24, 2018 15:39
[2018-11-24] MEDS ORDERED: morphine 2 MG INJ IV PRN (16:00)
[2018-11-24] MEDS ORDERED: ALBUTEROL/IPRATROPIUM (NEB) 3 ML AMP HHN PRN (16:00)
[2018-11-24] MEDS ORDERED: ZOLPIDEM 5 MG TAB PO PRN (16:00)
[2018-11-24] MEDS ORDERED: ONDANSETRON 4 MG INJ IV PRN (16:00)
[2018-11-24] MEDS ORDERED: NITROGLYCERIN (SL) 0.4 MG TAB SL PRN (16:00)
[2018-11-24] MEDS ORDERED: DOCUSATE SODIUM 100 MG CAP PO PRN (16:00)
[2018-11-24] MEDS ORDERED: NACL 0.9% 3 ML SYG IV SCH (16:00)
[2018-11-24] MEDS ORDERED: ACETAMINOPHEN 325 MG TAB PO PRN (16:00)
[2018-11-24] MEDS ORDERED: AZITHROMYCIN 500MG/NS (PMX) 250 ML IVPB SCH (17:00)
[2018-11-24] MEDS ORDERED: DEXTROSE 50% 50 ML SYRINGE IV PRN ×2 (17:00)
[2018-11-24] MEDS ORDERED: GLUCOSE GEL 15 GRAM TUBE BUCCAL PRN (17:00)
[2018-11-24] MEDS ORDERED: GLUCOSE GEL 15 GRAM TUBE PO PRN ×2 (17:00)
[2018-11-24] MEDS ORDERED: GLUCAGON 1 MG INJ IM PRN (17:00)
[2018-11-24] MEDS: CEFTRIAXONE 1 GM/50 ML (PMX) 50 ML IVPB SCH (17:34)
[2018-11-24] MEDS: INSULIN ASPART [NOVOLOG] 3 ML PEN SC SCH ×2 (18:00→22:33)
[2018-11-24 18:37] VITALS: BP 125/76; PULSE 98; RESP 17
--- NOTE | 2018-11-24 18:40 | NUR ---
Admit: Patient arrived on unit from ER, pt is on RA saturating 98%, v/s are wnl. Pt c/o SOB, he states he is having anxiety and takes Xanax at home, paged for an order, no orders received. Applied 2L O2 via NC, asked patient to take a deep breath, patient verbalize understanding not to get OOB with out calling for assistance first. Call light within reach, will endorse to next shift to complete admission.
[2018-11-24] MEDS: ENOXAPARIN 40 MG/0.4 ML SYG SC SCH (20:18)
[2018-11-24 20:20] VITALS: BP 157/73; PULSE 92; RESP 20
[2018-11-24] MEDS ORDERED: INSULIN GLARGINE [LANTus] (100 UNITS/ML) SYG SC SCH (21:00)
[2018-11-24] MEDS: AZITHROMYCIN 500MG/NS (PMX) 250 ML IVPB SCH (21:57)
[2018-11-24] MEDS: METHYLPREDNISOLONE 40 MG INJ IV SCH (22:22)
[2018-11-24] MEDS: HYDROCODONE/APAP (5/325) TAB PO PRN (23:15)
[2018-11-25] MEDS: ACCU-CHEK XX SCH (01:43)
[2018-11-25] MEDS ORDERED: INSULIN ASPART [NOVOLOG] 3 ML PEN SC ONE ×2 (02:00→22:00)
[2018-11-25 02:02] VITALS: BP 123/53; PULSE 99; RESP 18
--- NOTE | 2018-11-25 02:13 | NUR ---
Patient's blood sugar at 0200 is 345, informed Dr. Pinon and he ordered 7 units of novolog x1. Will continue to monitor patient.
--- NOTE | 2018-11-25 05:16 | NUR ---
EOSS: Patient remains stable. No s/s of SOB noted. Complained of pain x1 and was medicated with [place] with good relief. Breathing tx done x1. No other complaints at this time. Will endorse to morning nurse for continuity of care.
[2018-11-25 08:00] VITALS: PULSE 89
[2018-11-25 08:06] VITALS: BP 132/73; PULSE 18; RESP 18
[2018-11-25] MEDS: METHYLPREDNISOLONE 40 MG INJ IV SCH (08:28)
[2018-11-25] MEDS: NICOTINE (21 MG/24 HR) PATCH TRANSDERM SCH (08:28)
[2018-11-25] MEDS: AMLODIPINE 10 MG TAB PO SCH (08:30)
[2018-11-25] MEDS: ENOXAPARIN 40 MG/0.4 ML SYG SC SCH (08:32)
[2018-11-25] MEDS: INSULIN ASPART [NOVOLOG] 3 ML PEN SC SCH ×7 (08:33→20:39)
[2018-11-25] MEDS: HYDROCHLOROTHIAZIDE 25 MG TAB PO SCH (09:34)
[2018-11-25] MEDS ORDERED: ALPRAZOLAM 0.25 MG TAB PO PRN (11:30)
--- NOTE | 2018-11-25 11:37 | PSY ---
Date/Time of Note Date/Time of Note DATE: 11/25/18 TIME: 11:35 Psychiatric Subjective Eval Consent Pt consented to telemedicine: No Subjective Evaluation Patient location: inpatient Chief Complaint: SOB X FEW WEEKS History of present illness Patient is a 58-year-old male with a history of diabetes, obesity, tobacco abuse and COPD. Patient is admitted for shortness of breath. On a [id number] evaluation, patient is very anxious fearful about his breathing patient states he does not want to close his eyes for fear that he will he has poor coping skills. Encourage deep breathing and they provide supportive therapy. Past psychiatric history Denies Hospitalization: other Medical history Problems Medical Problems: (1) Arterial ischemic stroke, vertebrobasilar, thalamic, acute Status: Acute (2) Chest pain Status: Acute (3) Chest pain Status: Acute (4) COPD (chronic obstructive pulmonary disease) Status: Acute (5) Hyperglycemia due to type 2 diabetes mellitus Status: Acute (6) Hyperglycemia due to type 2 diabetes mellitus Status: Acute (7) Hypertension Status: Acute (8) Hypertension Status: Acute (9) Internuclear ophthalmoplegia of left eye Status: Acute (10) Methamphetamine abuse Status: Acute (11) Patient left without being seen Status: Acute (12) Reactive airway disease Status: Acute (13) Respiratory distress Status: Acute (14) Right lower lobe pulmonary infiltrate Status: Acute (15) Soft tissue abscess Status: Acute (16) Urinary retention Status: Acute (17) Urinary retention Status: Acute Allergies: Coded Allergies: No Known Allergy (Unverified , 11/24/18) Substance Abuse Substance use: other Substance abuse history: No Prior substance abuse treatmen: No Social History Marital status: other DPA/Conservatorship: No Psychiatric Objective Eval Review of Systems: Review of Systems: Not Applicable Physical Examination: Physical Examination: Not Applicable Mental Status Examination: Appearance: Poor Hygiene Eye Contact: Poor Behavior: Cooperative Speech: Soft AFFECT: Anxious Mood: Anxious Though Process: Linear Orientation: x4 Attention Span: Distractible Laboratory Results Laboratory Tests Test 11/24/18 11:30 11/24/18 20:00 11/24/18 21:56 11/24/18 22:42 White Blood Count 13.5 10^3/ul Red Blood Count 4.84 10^6/ul Hemoglobin 14.6 g/dl Hematocrit 42.9 % Mean Corpuscular 88.6 fl Volume Mean Corpuscular 30.2 pg Hemoglobin Mean Corpuscular 34.0 g/dl Hemoglobin Concen t Red Cell 15.5 % Distribution Width Platelet Count 322 10^3/UL Mean Platelet 9.8 fl Volume Immature 0.400 % Granulocytes % Neutrophils % 81.8 % Lymphocytes % 11.6 % Monocytes % 5.3 % Eosinophils % 0.5 % Basophils % 0.4 % Nucleated Red 0.0 /100WBC Blood Cells % Immature 0.060 10^3/ul Granulocytes # Neutrophils # 11.1 10^3/ul Lymphocytes # 1.6 10^3/ul Monocytes # 0.7 10^3/ul Eosinophils # 0.1 10^3/ul Basophils # 0.1 10^3/ul Nucleated Red 0.0 10^3/ul Blood Cells # Prothrombin Time 13.1 Sec Prothrombin Time 1.0 Ratio INR International 0.98 Normalized Ratio Activated 34.4 Sec Partial Thrombopl ast Time Sodium Level 140 mmol/L Potassium Level 3.9 mmol/L Chloride Level 99 mmol/L Carbon Dioxide 28 mmol/L Level Anion Gap 13 Blood Urea 17 mg/dl Nitrogen Creatinine 1.06 mg/dl Est Glomerular > 60 mL/min Filtrat Rate mL/min Glucose Level 178 mg/dl Calcium Level 9.3 mg/dl Total Bilirubin 1.4 mg/dl Direct Bilirubin 0.00 mg/dl Indirect 1.4 mg/dl Bilirubin Aspartate Amino 37 IU/L Transf (AST/SGOT) Alanine 38 IU/L Aminotransferase (ALT/SGPT) Alkaline 85 IU/L Phosphatase Troponin I < 0.012 ng/ml < 0.012 ng/ml < 0.012 ng/ml B-Type 78 PG/ML Natriuretic Peptide Total Protein 8.8 g/dl Albumin 4.7 g/dl Globulin 4.10 g/dl Albumin/Globulin 1.14 Ratio Creatine Kinase 114 IU/L 113 IU/L Creatine Kinase 1.4 1.5 Index Creatinine Kinase 1.65 ng/ml 1.73 ng/ml MB (Mass) Bedside Glucose 331 mg/dL Test 11/25/18 01:41 11/25/18 04:49 11/25/18 08:23 Bedside Glucose 345 mg/dL 282 mg/dL White Blood Count 14.8 10^3/ul Red Blood Count 4.34 10^6/ul Hemoglobin 13.3 g/dl Hematocrit 37.6 % Mean Corpuscular 86.6 fl Volume Mean Corpuscular 30.6 pg Hemoglobin Mean Corpuscular 35.4 g/dl Hemoglobin Concen t Red Cell 15.0 % Distribution Width Platelet Count 331 10^3/UL Mean Platelet 10.1 fl Volume Immature 1.200 % Granulocytes % Neutrophils % 89.4 % Lymphocytes % 7.0 % Monocytes % 2.3 % Eosinophils % 0.0 % Basophils % 0.1 % Nucleated Red 0.0 /100WBC Blood Cells % Immature 0.180 10^3/ul Granulocytes # Neutrophils # 13.2 10^3/ul Lymphocytes # 1.0 10^3/ul Monocytes # 0.3 10^3/ul Eosinophils # 0.0 10^3/ul Basophils # 0.0 10^3/ul Nucleated Red 0.0 10^3/ul Blood Cells # Sodium Level 136 mmol/L Potassium Level 4.1 mmol/L Chloride Level 97 mmol/L Carbon Dioxide 25 mmol/L Level Anion Gap 14 Blood Urea 25 mg/dl Nitrogen Creatinine 0.91 mg/dl Est Glomerular > 60 mL/min Filtrat Rate mL/min Glucose Level 330 mg/dl Hemoglobin A1c 6.6 % Calcium Level 9.1 mg/dl Phosphorus Level 3.8 mg/dl Magnesium Level 2.1 mg/dl Assessment and Plan Assessment/Diagnosis Diagnosis Anxiety disorder NOS Recommendation/Plan Medication Management Continue current medications Xanax 0.25 mg every 6 hours and Ambien 10 mg at bedtime as needed for sleep Multiple antipsychotics: No Psychotherapy Provide supportive therapy Discharge Disposition: Other Legal Status: Voluntary (Patient does not meets criteria for 5150 hold) BALWINDER STEELE NP Nov 25, 2018 11:37
--- NOTE | 2018-11-25 11:54 | PN ---
Date/Time of Note Date/Time of Note DATE: 11/25/18 TIME: 11:49 Assessment/Plan VTE Prophylaxis Risk score (from Nsg)>0 risk: 2 Pharmacological prophylaxis: LMWH Lines/Catheters IV Catheter Type (from Nrsg): Saline Lock Urinary Cath still in place: No Assessment/Plan Hospital Course 1. COPD exacerbation Patient with wheezing IV antibiotics DC Solu-Medrol as patient's anxiety is worsening Start Pulmicort Continue DuoNeb but changed to scheduled regimen Phenergan with codeine for cough Continue supplemental O2 2. Diabetes Continue insulin regimen 3. Hypertension Continue meds 4. Morbid obesity Lifestyle changes 5. Leukocytosis secondary to COPD exacerbation versus reactive or secondary to recent steroids IV antibiotics 6. Anxiety Resume home Xanax DC steroids as it may be exacerbating anxiety Psychiatry consultation obtained Prophylaxis: Lovenox DC planning: Patient not stable for DC, continues to have wheezing and requires supplemental oxygen, patient also quite anxious and psychiatry consultation is pending Result Diagram: 11/25/18 0449 11/25/18 0449 Results 24hrs Laboratory Tests Test 11/24/18 20:00 11/24/18 21:56 11/24/18 22:42 11/25/18 01:41 Creatine Kinase 114 113 Creatine Kinase 1.4 1.5 Index Creatinine Kinase MB 1.65 1.73 (Mass) Troponin I < 0.012 < 0.012 Bedside Glucose 331 H 345 H Test 11/25/18 04:49 11/25/18 08:23 White Blood Count 14.8 H Red Blood Count 4.34 L Hemoglobin 13.3 L Hematocrit 37.6 L Mean Corpuscular 86.6 Volume Mean Corpuscular 30.6 Hemoglobin Mean Corpuscular 35.4 Hemoglobin Concent Red Cell 15.0 H Distribution Width Platelet Count 331 Mean Platelet Volume 10.1 Immature 1.200 H Granulocytes % Neutrophils % 89.4 H Lymphocytes % 7.0 L Monocytes % 2.3 Eosinophils % 0.0 Basophils % 0.1 Nucleated Red Blood 0.0 Cells % Immature 0.180 H Granulocytes # Neutrophils # 13.2 H Lymphocytes # 1.0 Monocytes # 0.3 Eosinophils # 0.0 Basophils # 0.0 Nucleated Red Blood 0.0 Cells # Sodium Level 136 Potassium Level 4.1 Chloride Level 97 Carbon Dioxide Level 25 Anion Gap 14 H Blood Urea Nitrogen 25 H Creatinine 0.91 Est Glomerular > 60 Filtrat Rate mL/min Glucose Level 330 #H Hemoglobin A1c 6.6 H Calcium Level 9.1 Phosphorus Level 3.8 Magnesium Level 2.1 Bedside Glucose 282 H Subjective 24 Hr Interval Summary Respiratory: shortness of breath Psychological: anxiety Exam/Review of Systems Vital Signs Vitals Vital Signs Date Temp Pulse Resp B/P (MAP) Pulse Ox O2 O2 Flow FiO2 Time Delivery Rate 11/25/18 97.7 18 18 132/73 98 08:06 (92) 11/25/18 Nasal 2.0 08:00 Cannula Intake and Output 11/24/18 11/24/18 11/25/18 1515:00 23:00 07:00 IntakeIntake Total 300 ml 600 ml OutputOutput Total 500 ml 800 ml BalanceBalance -200 ml -200 ml Exam Constitutional: alert, oriented Respiratory: clear to auscultation Cardiovascular: regular rate and rhythm Gastrointestinal: soft; No distended Musculoskeletal: nl extremities to inspection Medications Medications Current Medications IV Flush (NS 3 ml) 3 ml PER PROTOCOL IV ; Start 11/24/18 at 16:00 Ondansetron HCl (Zofran Inj) 4 mg Q6H PRN IV NAUSEA AND/OR VOMITING; Start 11/24/18 at 16:00 Acetaminophen (Tylenol Tab) 650 mg Q6H PRN PO PAIN LEVEL 1-3 OR FEVER; Start 11/24/18 at 16:00 Acetaminophen/ Hydrocodone Bitart ([place] (5/325)) 1 tab Q6H PRN PO MODERATE PAIN LEVEL 4-6 Last administered on 11/24/18at 23:15; Admin Dose 1 TAB; Start 11/24/18 at 16:00 Morphine Sulfate (morphine) 2 mg Q4H PRN IV SEVERE PAIN LEVEL 7-10; Start 11/24/18 at 16:00 Docusate Sodium (Colace) 100 mg Q12H PRN PO CONSTIPATION; Start 11/24/18 at 16:00 Zolpidem Tartrate (Ambien) 5 mg QHS PRN PO SLEEP; Start 11/24/18 at 16:00 Enoxaparin Sodium (Lovenox) 40 mg DAILY SC Last administered on 11/25/18at 08:32; Admin Dose 40 MG; Start 11/24/18 at 18:00 Albuterol/ Ipratropium (Duoneb) 3 ml Q4H RESP THERAPY PRN HHN SHORTNESS OF BREATH Last administered on 11/24/18 23:37; Admin Dose 3 ML; Start 11/24/18 at 16:00 Ceftriaxone Sodium 50 ml @ 100 mls/hr Q24H IVPB Last administered on 11/24/18 17:34; Admin Dose 100 MLS/HR; Start 11/24/18 at 17:00 Methylprednisolone Sodium Succinate (Solu-Medrol) 40 mg Q12 IV Last administe red on 11/25/18 08:28; Admin Dose 40 MG; Start 11/24/18 at 21:00 Amlodipine Besylate (Norvasc) 10 mg DAILY PO Last administered on 11/25/18 08:30; Admin Dose 10 MG; Start 11/25/18 at 09:00 Hydrochlorothiazide (Hydrochlorothiazide) 25 mg DAILY PO Last administered on 11/25/18 09:34; Admin Dose 25 MG; Start 11/25/18 at 09:00 Insulin Aspart (Novolog Insulin Pen) 9 unit WITH MEALS SC Last administered on 11/25/18 08:33; Admin Dose 9 UNIT; Start 11/24/18 at 18:00 Insulin Glargine (Lantus) 36 units QHS SC Last administered on 11/24/18 22:34; Admin Dose 36 UNITS; Start 11/24/18 at 21:00 Nicotine (Nicoderm 21 Mg/ 24hr) 1 patch DAILY TRANSDERM Last administered on 11/25/18 08:28; Admin Dose 1 PATCH; Start 11/25/18 at 09:00 Nitroglycerin (Nitroglycerin (Sl Tab) 0.4 Mg) 1 tab [id number] PRN SL CHEST PAIN; Start 11/24/18 at 16:00 Diagnostic Test (Pha) (Accu-Chek) 1 ea 02 XX Last administered on 11/25/18at 01:43; Admin Dose 1 EA; Start 11/25/18 at 02:00 Insulin Aspart (Novolog Insulin Pen) NOVOLOG *MILD* ALGORITHM WITH MEALS BEDTIME SC Last administered on 11/25/18 08:34; Admin Dose 3 UNIT; Start 11/24/18 at 18:00 Miscellaneous Information 1 ea NOTE XX ; Start 11/24/18 at 17:00 Glucose (Glutose) 15 gm Q15M PRN PO DECREASED GLUCOSE; Start 11/24/18 at 17:00 Glucose (Glutose) 22.5 gm Q15M PRN PO DECREASED GLUCOSE; Start 11/24/18 at 17:00 Dextrose (D50w Syringe) 25 ml Q15M PRN IV DECREASED GLUCOSE; Start 11/24/18 at 17:00 Dextrose (D50w Syringe) 50 ml Q15M PRN IV DECREASED GLUCOSE; Start 11/24/18 at 17:00 Glucagon (Glucagen) 1 mg Q15M PRN IM DECREASED GLUCOSE; Start 11/24/18 at 17:00 Glucose (Glutose) 15 gm Q15M PRN BUCCAL DECREASED GLUCOSE; Start 11/24/18 at 17:00 Azithromycin 250 ml @ 250 mls/hr Q24H IVPB Last administered on 11/24/18at 21:57; Admin Dose 250 MLS/HR; Start 11/24/18 at 21:00 Promethazine HCl/ Codeine (Phenergan/ Codeine) 5 ml Q4H PRN PO COUGH; Start 11/25/18 at 11:30 Albuterol/ Ipratropium (Duoneb) 3 ml Q4H RESP THERAPY HHN ; Start 11/25/18 at 13:00 Nystatin (Nystatin Powder) 1 applic BID TOP ; Start 11/25/18 at 21:00 Alprazolam (Xanax) 0.25 mg Q6H PRN PO ANXIETY; Start 11/25/18 at 12:00 MELITA CARRANZA Nov 25, 2018 11:54
[2018-11-25] MEDS: BUDESONIDE (NEB) 0.5MG/2ML AMP HHN SCH ×2 (12:58→21:17)
[2018-11-25] MEDS: ALBUTEROL/IPRATROPIUM (NEB) 3 ML AMP HHN SCH ×3 (12:58→21:17)
[2018-11-25] MEDS: ALPRAZOLAM 0.25 MG TAB PO PRN ×2 (13:22→20:35)
[2018-11-25] MEDS: PROMETHAZINE/CODEINE 5ML CUP PO PRN ×2 (13:22→17:37)
[2018-11-25 13:34] VITALS: BP 120/66; PULSE 92; RESP 18
--- NOTE | 2018-11-25 16:55 | NUR ---
EOSS: Patient is in bed resting, waiting for dinner. Pt had breathing treatment scheduled around the clock every 4 hours. NO other signs of distress or discomfort at the moment. Call light within reach, bed alarm on, side rails up x2. Offered patient to speak to social media content specialist to get more information on resources for custodial and basic care. Patient states it's not necessary at the moment. IV site remains intact to left hand, urinal at bedside, encouraged patient to reposition self every 2 hours and use urinal, pt states he has been incontinent for the last 2 weeks. Informed him to make sure to follow up with primary DR for his incontinence problem.
[2018-11-25] MEDS: CEFTRIAXONE 1 GM/50 ML (PMX) 50 ML IVPB SCH (17:30)
[2018-11-25 19:40] VITALS: BP 130/65; PULSE 103; RESP 15
[2018-11-25] MEDS: NYSTATIN 30 GM POWDER BTL TOP SCH (20:35)
[2018-11-25] MEDS: INSULIN GLARGINE [LANTus] (100 UNITS/ML) SYG SC SCH (20:40)
[2018-11-25] MEDS: AZITHROMYCIN 500MG/NS (PMX) 250 ML IVPB SCH ×2 (20:40→21:32)
[2018-11-26] MEDS: PROMETHAZINE/CODEINE 5ML CUP PO PRN ×4 (01:11→20:32)
[2018-11-26] MEDS: ALBUTEROL/IPRATROPIUM (NEB) 3 ML AMP HHN SCH ×6 (01:43→21:02)
[2018-11-26] MEDS: ACCU-CHEK XX SCH (02:00)
[2018-11-26 02:16] VITALS: BP 102/52; PULSE 87; RESP 16
--- NOTE | 2018-11-26 03:36 | NUR ---
hyperglycemia accucheck done. 313, gave 40 units lantus and 4 units novolog. notified cyndie narayanan and added 3 units novolog to which the patient refused. informed of its action and side effects and still refuses. will monitor for hypo/hyperglycemia.
[2018-11-26 07:31] VITALS: BP 109/56; PULSE 86; RESP 22
[2018-11-26] MEDS: NICOTINE (21 MG/24 HR) PATCH TRANSDERM SCH (08:18)
[2018-11-26] MEDS: AMLODIPINE 10 MG TAB PO SCH (08:18)
[2018-11-26] MEDS: HYDROCHLOROTHIAZIDE 25 MG TAB PO SCH (08:18)
[2018-11-26] MEDS: INSULIN ASPART [NOVOLOG] 3 ML PEN SC SCH ×7 (08:32→20:37)
[2018-11-26] MEDS: ENOXAPARIN 40 MG/0.4 ML SYG SC SCH (08:32)
[2018-11-26] MEDS: BUDESONIDE (NEB) 0.5MG/2ML AMP HHN SCH ×2 (08:59→21:02)
[2018-11-26] MEDS: NYSTATIN 30 GM POWDER BTL TOP SCH ×2 (09:06→20:40)
[2018-11-26] MEDS: ALPRAZOLAM 0.25 MG TAB PO PRN ×2 (09:06→20:32)
--- NOTE | 2018-11-26 12:21 | PN ---
Date/Time of Note Date/Time of Note DATE: 11/26/18 TIME: 12:17 Assessment/Plan VTE Prophylaxis Risk score (from Nsg)>0 risk: 2 Pharmacological prophylaxis: LMWH Lines/Catheters IV Catheter Type (from Nrsg): Saline Lock Urinary Cath still in place: No Assessment/Plan Hospital Course 1. COPD exacerbation Patient continues to have bronchial spasms IV antibiotics Have discontinued Solu-Medrol as patient's anxiety is worsening Continue Pulmicort Continue scheduled DuoNeb Phenergan with codeine for cough Continue supplemental O2 as needed 2. Diabetes-sugars have improved but still slightly elevated Increase mealtime insulin 3. Hypertension Continue meds 4. Morbid obesity Lifestyle changes 5. Leukocytosis secondary to steroids On IV antibiotics 6. Anxiety Resumed home Xanax Psychiatry consultation appreciated Prophylaxis: Lovenox DC planning: Patient not stable for DC, continues to have wheezing and requires supplemental oxygen Result Diagram: 11/26/18 0553 11/26/18 0553 Results 24hrs Laboratory Tests Test 11/25/18 13:13 11/25/18 17:39 11/25/18 20:34 11/26/18 03:55 Bedside Glucose 297 H 316 H 313 H 234 H Test 11/26/18 05:53 11/26/18 08:17 White Blood Count 18.2 #H Red Blood Count 4.24 L Hemoglobin 12.8 L Hematocrit 37.5 L Mean Corpuscular 88.4 Volume Mean Corpuscular 30.2 Hemoglobin Mean Corpuscular 34.1 Hemoglobin Concent Red Cell 15.6 H Distribution Width Platelet Count 375 Mean Platelet Volume 10.3 Immature 0.900 H Granulocytes % Neutrophils % 86.0 H Lymphocytes % 8.2 L Monocytes % 4.6 Eosinophils % 0.1 Basophils % 0.2 Nucleated Red Blood 0.0 Cells % Immature 0.170 H Granulocytes # Neutrophils # 15.7 H Lymphocytes # 1.5 Monocytes # 0.8 Eosinophils # 0.0 Basophils # 0.0 Nucleated Red Blood 0.0 Cells # Sodium Level 140 Potassium Level 4.3 Chloride Level 102 Carbon Dioxide Level 26 Anion Gap 12 Blood Urea Nitrogen 29 H Creatinine 0.89 Est Glomerular > 60 Filtrat Rate mL/min Glucose Level 209 # Calcium Level 9.0 Bedside Glucose 180 Subjective 24 Hr Interval Summary Respiratory: shortness of breath, wheezing Exam/Review of Systems Vital Signs Vitals Vital Signs Date Temp Pulse Resp B/P (MAP) Pulse Ox O2 O2 Flow FiO2 Time Delivery Rate 11/26/18 85 18 94 Nasal 2.0 08:59 Cannula 11/26/18 98.5 109/56 07:31 (73) 11/26/18 96 01:43 Intake and Output 11/25/18 11/25/18 11/26/18 1515:00 23:00 07:00 IntakeIntake Total 600 ml 660 ml OutputOutput Total 200 ml 400 ml 500 ml BalanceBalance 400 ml 260 ml -500 ml Exam Constitutional: alert, oriented Respiratory: wheezing Cardiovascular: regular rate and rhythm Gastrointestinal: soft; No distended Musculoskeletal: nl extremities to inspection Medications Medications Current Medications IV Flush (NS 3 ml) 3 ml PER PROTOCOL IV ; Start 11/24/18 at 16:00 Ondansetron HCl (Zofran Inj) 4 mg Q6H PRN IV NAUSEA AND/OR VOMITING; Start 11/24/18 at 16:00 Acetaminophen (Tylenol Tab) 650 mg Q6H PRN PO PAIN LEVEL 1-3 OR FEVER; Start 11/24/18 at 16:00 Acetaminophen/ Hydrocodone Bitart ([place] (5/325)) 1 tab Q6H PRN PO MODERATE PAIN LEVEL 4-6 Last administered on 11/24/18at 23:15; Admin Dose 1 TAB; Start 11/24/18 at 16:00 Morphine Sulfate (morphine) 2 mg Q4H PRN IV SEVERE PAIN LEVEL 7-10; Start 11/24/18 at 16:00 Docusate Sodium (Colace) 100 mg Q12H PRN PO CONSTIPATION; Start 11/24/18 at 16:00 Zolpidem Tartrate (Ambien) 5 mg QHS PRN PO SLEEP; Start 11/24/18 at 16:00 Enoxaparin Sodium (Lovenox) 40 mg DAILY SC Last administered on 11/26/18at 08:32; Admin Dose 40 MG; Start 11/24/18 at 18:00 Albuterol/ Ipratropium (Duoneb) 3 ml Q4H RESP THERAPY PRN HHN SHORTNESS OF BREATH Last administered on 11/24/18at 23:37; Admin Dose 3 ML; Start 11/24/18 at 16:00 Ceftriaxone Sodium 50 ml @ 100 mls/hr Q24H IVPB Last administered on 11/25/18at 17:30; Admin Dose 100 MLS/HR; Start 11/24/18 at 17:00 Amlodipine Besylate (Norvasc) 10 mg DAILY PO Last administered on 11/26/18at 08:18; Admin Dose 10 MG; Start 11/25/18 at 09:00 Hydrochlorothiazide (Hydrochlorothiazide) 25 mg DAILY PO Last administered on 11/26/18at 08:18; Admin Dose 25 MG; Start 11/25/18 at 09:00 Nicotine (Nicoderm 21 Mg/ 24hr) 1 patch DAILY TRANSDERM Last administered on 11/26/18at 08:18; Admin Dose 1 PATCH; Start 11/25/18 at 09:00 Nitroglycerin (Nitroglycerin (Sl Tab) 0.4 Mg) 1 tab [id number] PRN SL CHEST PAIN; Start 11/24/18 at 16:00 Diagnostic Test (Pha) (Accu-Chek) 1 ea 02 XX Last administered on 11/25/18at 01:43; Admin Dose 1 EA; Start 11/25/18 at 02:00 Insulin Aspart (Novolog Insulin Pen) NOVOLOG *MILD* ALGORITHM WITH MEALS BEDTIME SC Last administered on 11/26/18at 08:32; Admin Dose 1 UNIT; Start 11/24/18 at 18:00 Miscellaneous Information 1 ea NOTE XX ; Start 11/24/18 at 17:00 Glucose (Glutose) 15 gm Q15M PRN PO DECREASED GLUCOSE; Start 11/24/18 at 17:00 Glucose (Glutose) 22.5 gm Q15M PRN PO DECREASED GLUCOSE; Start 11/24/18 at 17:00 Dextrose (D50w Syringe) 25 ml Q15M PRN IV DECREASED GLUCOSE; Start 11/24/18 at 17:00 Dextrose (D50w Syringe) 50 ml Q15M PRN IV DECREASED GLUCOSE; Start 11/24/18 at 17:00 Glucagon (Glucagen) 1 mg Q15M PRN IM DECREASED GLUCOSE; Start 11/24/18 at 17:00 Glucose (Glutose) 15 gm Q15M PRN BUCCAL DECREASED GLUCOSE; Start 11/24/18 at 17:00 Azithromycin 250 ml @ 250 mls/hr Q24H IVPB Last administered on 11/25/18at 21:32; Admin Dose 250 MLS/HR; Start 11/24/18 at 21:00 Promethazine HCl/ Codeine (Phenergan/ Codeine) 5 ml Q4H PRN PO COUGH Last administered on 11/26/18 08:33; Admin Dose 5 ML; Start 11/25/18 at 11:30 Albuterol/ Ipratropium (Duoneb) 3 ml Q4H RESP THERAPY HHN Last administered on 11/26/18 08:59; Admin Dose 3 ML; Start 11/25/18 at 13:00 Nystatin (Nystatin Powder) 1 applic BID TOP Last administered on 11/26/18 09:06; Admin Dose 1 APPLIC; Start 11/25/18 at 21:00 Alprazolam (Xanax) 0.25 mg Q6H PRN PO ANXIETY Last administered on 11/26/18 09:06; Admin Dose 0.25 MG; Start 11/25/18 at 12:00 Budesonide (Pulmicort (Neb)) 0.5 mg BID RESP THERAPY HHN Last administered on 11/26/18 08:59; Admin Dose 0.5 MG; Start 11/25/18 at 12:00 Insulin Aspart (Novolog Insulin Pen) 11 unit WITH MEALS SC Last administered on 11/26/18 08:32; Admin Dose 11 UNIT; Start 11/25/18 at 12:00 Insulin Glargine (Lantus) 40 units QHS SC Last administered on 11/25/18 20:40; Admin Dose 40 UNITS; Start 11/25/18 at 21:00 MELITA CARRANZA Nov 26, 2018 12:21
[2018-11-26 15:43] VITALS: BP 112/64; PULSE 89; RESP 22
[2018-11-26] MEDS: CEFTRIAXONE 1 GM/50 ML (PMX) 50 ML IVPB SCH (16:12)
--- NOTE | 2018-11-26 16:41 | NUR ---
SS NOTE: CONSULT SW REFERRED TO PT REGARDING HOMELESS ASSESSMENT. PT IS 58 YR OLD MALE ADMITTED FOR COPD. SW MET WITH PT AT BEDSIDE, PT APPEARED TO BE A&OX4 AND COPING APPROPRIATELY WITH ADMISSION. PT STATED THAT HE HAS LIMITED SUPPORT SYSTEM. PT STATED THAT SHE IS CURRENTLY HOMELESS AND LIVING IN HIS VEHICLE. PT STATED THAT HE HAS BEEN LIVING IN HIS CARE FOR THE LAST YEAR WHICH IS PARKED AT [address] PT STATED THAT HE IS UNEMPLOYED AND RECEIVING GR AND FOOD STAMPS. PT STATED THAT HE IS IN THE PROCESS OF APPLYING FOR SSI AND HAS RETAINED AN SHRIMP PEELER TO ASSIST HIM IN THE PROCESS. PT STATED THAT HIS BROTHER PAUL ARANDA ([phone]) IS HIS SURROGATE DECISION MAKER. PT DENIED SUBSTANCE USE DISORDER. PT DENIED MENTAL HEALTH HX. SW PROVIDED EMOTIONAL SUPPORT. PT DECLINED [facility]INTER [facility] AND HOUSING RESOURCES AND STATED THAT HE WILL D/C BACK TO HIS CAR AT D/C. PLAN IS TO PROVIDE PT WITH HOMELESS RESOURCES AT D/C. PT STATED THAT HE WILL ARRANGE FOR TRANSPORTATION BACK TO HIS VEHICLE AND DECLINED BUS TOKENS. PLAN IS FOR PT TO D/C BACK TO HIS VEHICLE AND F/U WITH HOMELESS RESOURCES. SW PROVIDED DIRECTOR [employer]AU CONTACT INFO FOR ANY NEEDED RESOURCES. SW REMAINS AVAILABLE FOR F/U NEEDED.
--- NOTE | 2018-11-26 18:55 | NUR ---
Shift Summary Report Patient stable during this shift. Able to make needs known. Still continues to be coughing and wheezing. Breathing treatments done as ordered. PRN medication for cough given. Will continue to monitor patient. Advised to call for assistance. Bed alarms on.
[2018-11-26 19:55] VITALS: BP 141/81; PULSE 93; RESP 18
[2018-11-26] MEDS: AZITHROMYCIN 500MG/NS (PMX) 250 ML IVPB SCH (20:37)
[2018-11-26] MEDS: INSULIN GLARGINE [LANTus] (100 UNITS/ML) SYG SC SCH (20:43)
[2018-11-27] MEDS: ALBUTEROL/IPRATROPIUM (NEB) 3 ML AMP HHN SCH ×7 (01:49→20:43)
[2018-11-27 02:00] VITALS: BP 146/85; PULSE 95; RESP 18
[2018-11-27] MEDS: PROMETHAZINE/CODEINE 5ML CUP PO PRN ×3 (02:10→20:31)
[2018-11-27] MEDS: ACCU-CHEK XX SCH (02:44)
--- NOTE | 2018-11-27 05:04 | NUR ---
shift report: Patient remains stable at this time.No s/sx of hypo/hyperglycemia.Continue on breathing treatment by Rt,well tolerated. continent. On Iv antibiotic with no adverse reaction was noted.Due medications was given. Instructed to call for assistance. Bed alarm is on. Medicated with cough medication and Xanax as per ordered.will continue to monitor.
[2018-11-27 07:50] VITALS: BP 145/76; PULSE 85; RESP 18
[2018-11-27] MEDS: INSULIN ASPART [NOVOLOG] 3 ML PEN SC SCH ×7 (08:00→20:33)
[2018-11-27] MEDS: BUDESONIDE (NEB) 0.5MG/2ML AMP HHN SCH ×2 (08:31→20:43)
[2018-11-27] MEDS: NICOTINE (21 MG/24 HR) PATCH TRANSDERM SCH (10:14)
[2018-11-27] MEDS: AMLODIPINE 10 MG TAB PO SCH (10:15)
[2018-11-27] MEDS: HYDROCHLOROTHIAZIDE 25 MG TAB PO SCH (10:16)
[2018-11-27] MEDS: NYSTATIN 30 GM POWDER BTL TOP SCH ×2 (10:18→20:33)
[2018-11-27] MEDS: ENOXAPARIN 40 MG/0.4 ML SYG SC SCH (10:22)
--- NOTE | 2018-11-27 10:26 | PN ---
Date/Time of Note Date/Time of Note DATE: 11/27/18 TIME: 10:25 Assessment/Plan VTE Prophylaxis Risk score (from Nsg)>0 risk: 3 Pharmacological prophylaxis: LMWH Lines/Catheters IV Catheter Type (from Nrsg): Saline Lock Urinary Cath still in place: No Assessment/Plan Hospital Course 1. COPD exacerbation Patient continues to have bronchial spasms IV antibiotics Have discontinued Solu-Medrol as patient's anxiety was worsening Continue Pulmicort Continue scheduled DuoNeb Phenergan with codeine for cough Continue supplemental O2 as needed 2. Diabetes-sugars have improved but still slightly elevated Increase mealtime insulin 3. Hypertension Continue meds 4. Morbid obesity Lifestyle changes 5. Leukocytosis secondary to steroids On IV antibiotics 6. Anxiety Resumed home Xanax Psychiatry consultation appreciated Prophylaxis: Lovenox DC planning: Patient not stable for DC, continues to have wheezing and significant cough Result Diagram: 11/26/18 0553 11/26/18 0553 Results 24hrs Laboratory Tests Test 11/26/18 12:34 11/26/18 17:34 11/26/18 20:33 11/27/18 02:36 Bedside Glucose 205 112 184 171 Test 11/27/18 08:26 Bedside Glucose 122 Subjective 24 Hr Interval Summary Respiratory: cough, shortness of breath Exam/Review of Systems Vital Signs Vitals Vital Signs Date Temp Pulse Resp B/P (MAP) Pulse Ox O2 O2 Flow FiO2 Time Delivery Rate 11/27/18 98.8 85 18 145/76 96 07:50 (99) 11/27/18 2.0 05:52 11/27/18 Nasal 05:52 Cannula 11/27/18 21 01:50 Intake and Output 11/26/18 11/26/18 11/27/18 1515:00 23:00 07:00 IntakeIntake Total 900 ml 770 ml 250 ml OutputOutput Total 1550 ml 1550 ml BalanceBalance -650 ml -780 ml 250 ml Exam Constitutional: alert, oriented Respiratory: wheezing Cardiovascular: regular rate and rhythm Gastrointestinal: soft; No distended Musculoskeletal: nl extremities to inspection Medications Medications Current Medications IV Flush (NS 3 ml) 3 ml PER PROTOCOL IV ; Start 11/24/18 at 16:00 Ondansetron HCl (Zofran Inj) 4 mg Q6H PRN IV NAUSEA AND/OR VOMITING; Start 11/24/18 at 16:00 Acetaminophen (Tylenol Tab) 650 mg Q6H PRN PO PAIN LEVEL 1-3 OR FEVER; Start 11/24/18 at 16:00 Acetaminophen/ Hydrocodone Bitart ([place] (5/325)) 1 tab Q6H PRN PO MODERATE PAIN LEVEL 4-6 Last administered on 11/24/18at 23:15; Admin Dose 1 TAB; Start 11/24/18 at 16:00 Morphine Sulfate (morphine) 2 mg Q4H PRN IV SEVERE PAIN LEVEL 7-10; Start 11/24/18 at 16:00 Docusate Sodium (Colace) 100 mg Q12H PRN PO CONSTIPATION; Start 11/24/18 at 16:00 Zolpidem Tartrate (Ambien) 5 mg QHS PRN PO SLEEP; Start 11/24/18 at 16:00 Enoxaparin Sodium (Lovenox) 40 mg DAILY SC Last administered on 11/27/18at 10:22; Admin Dose 40 MG; Start 11/24/18 at 18:00 Albuterol/ Ipratropium (Duoneb) 3 ml Q4H RESP THERAPY PRN HHN SHORTNESS OF BREATH Last administered on 11/24/18at 23:37; Admin Dose 3 ML; Start 11/24/18 at 16:00 Ceftriaxone Sodium 50 ml @ 100 mls/hr Q24H IVPB Last administered on 11/26/18at 16:12; Admin Dose 100 MLS/HR; Start 11/24/18 at 17:00 Amlodipine Besylate (Norvasc) 10 mg DAILY PO Last administered on 11/27/18 10:15; Admin Dose 10 MG; Start 11/25/18 at 09:00 Hydrochlorothiazide (Hydrochlorothiazide) 25 mg DAILY PO Last administered on 11/27/18 10:16; Admin Dose 25 MG; Start 11/25/18 at 09:00 Nicotine (Nicoderm 21 Mg/ 24hr) 1 patch DAILY TRANSDERM Last administered on 11/27/18at 10:14; Admin Dose 1 PATCH; Start 11/25/18 at 09:00 Nitroglycerin (Nitroglycerin (Sl Tab) 0.4 Mg) 1 tab [id number] PRN SL CHEST PAIN; Start 11/24/18 at 16:00 Diagnostic Test (Pha) (Accu-Chek) 1 02 XX Last administered on 11/27/18at 02:44; Admin Dose 1 EA; Start 11/25/18 at 02:00 Insulin Aspart (Novolog Insulin Pen) NOVOLOG *MILD* ALGORITHM WITH MEALS BEDTIME SC Last administered on 11/26/18at 20:37; Admin Dose 1 UNIT; Start 11/24/18 at 18:00 Miscellaneous Information 1 ea NOTE XX ; Start 11/24/18 at 17:00 Glucose (Glutose) 15 gm Q15M PRN PO DECREASED GLUCOSE; Start 11/24/18 at 17:00 Glucose (Glutose) 22.5 gm Q15M PRN PO DECREASED GLUCOSE; Start 11/24/18 at 17:00 Dextrose (D50w Syringe) 25 ml Q15M PRN IV DECREASED GLUCOSE; Start 11/24/18 at 17:00 Dextrose (D50w Syringe) 50 ml Q15M PRN IV DECREASED GLUCOSE; Start 11/24/18 at 17:00 Glucagon (Glucagen) 1 mg Q15M PRN IM DECREASED GLUCOSE; Start 11/24/18 at 17:00 Glucose (Glutose) 15 gm Q15M PRN BUCCAL DECREASED GLUCOSE; Start 11/24/18 at 17:00 Azithromycin 250 ml @ 250 mls/hr Q24H IVPB Last administered on 11/26/18at 20:37; Admin Dose 250 MLS/HR; Start 11/24/18 at 21:00 Promethazine HCl/ Codeine (Phenergan/ Codeine) 5 ml Q4H PRN PO COUGH Last administered on 11/27/18at 10:23; Admin Dose 5 ML; Start 11/25/18 at 11:30 Albuterol/ Ipratropium (Duoneb) 3 ml Q4H RESP THERAPY HHN Last administered on 11/27/18at 08:31; Admin Dose 3 ML; Start 11/25/18 at 13:00 Nystatin (Nystatin Powder) 1 applic BID TOP Last administered on 11/27/18at 10:18; Admin Dose 1 APPLIC; Start 11/25/18 at 21:00 Alprazolam (Xanax) 0.25 mg Q6H PRN PO ANXIETY Last administered on 11/26/18at 20:32; Admin Dose 0.25 MG; Start 11/25/18 at 12:00 Budesonide (Pulmicort (Neb)) 0.5 mg BID RESP THERAPY HHN Last administered on 11/27/18at 08:31; Admin Dose 0.5 MG; Start 11/25/18 at 12:00 Insulin Glargine (Lantus) 40 units QHS SC Last administered on 11/26/18at 20:43; Admin Dose 40 UNITS; Start 11/25/18 at 21:00 Insulin Aspart (Novolog Insulin Pen) 13 unit WITH MEALS SC Last administered on 11/27/18at 08:31; Admin Dose 13 UNIT; Start 11/26/18 at 12:15 MELITA CARRANZA Nov 27, 2018 10:26
[2018-11-27 13:40] VITALS: BP 131/76; PULSE 88; RESP 18
[2018-11-27] MEDS: CEFTRIAXONE 1 GM/50 ML (PMX) 50 ML IVPB SCH (18:02)
[2018-11-27] MEDS: ALPRAZOLAM 0.25 MG TAB PO PRN (18:47)
--- NOTE | 2018-11-27 18:57 | NUR ---
VS within acceptable range. Patient still has intermittent difficulty with breathing, wheezing . Breathing treatment been given every 4 hours, with some relieve of symptoms. Blood sugar fluctuated within acceptable range, Insulin coverage given as ordered. Patient remained safe during the day, bed alarm is on at all times, call light within reach.Will continue to monitor.
[2018-11-27] MEDS: AZITHROMYCIN 500MG/NS (PMX) 250 ML IVPB SCH (20:31)
[2018-11-27] MEDS: INSULIN GLARGINE [LANTus] (100 UNITS/ML) SYG SC SCH (20:36)
[2018-11-27 21:16] VITALS: BP 134/78; PULSE 89; RESP 18
[2018-11-28] MEDS: ALBUTEROL/IPRATROPIUM (NEB) 3 ML AMP HHN SCH ×6 (01:18→20:41)
[2018-11-28] MEDS: PROMETHAZINE/CODEINE 5ML CUP PO PRN ×3 (01:38→19:29)
[2018-11-28 01:43] VITALS: BP 155/81; PULSE 91; RESP 20
[2018-11-28] MEDS: ACCU-CHEK XX SCH (02:00)
--- NOTE | 2018-11-28 05:29 | NUR ---
shift report: Patient sleeps comfortably.On breathing treatment by RT.Cough medication was given with relief.No s/sx of hypo hyperglycemia. Continue on Iv Antibiotic with no adverse reaction.bed alarm is on. assisted to the toilet. all needs met and attended.will continue to monitor.
[2018-11-28 07:20] VITALS: BP 138/76; PULSE 99; RESP 20
[2018-11-28] MEDS: BUDESONIDE (NEB) 0.5MG/2ML AMP HHN SCH ×2 (07:46→20:41)
[2018-11-28] MEDS: NICOTINE (21 MG/24 HR) PATCH TRANSDERM SCH (08:20)
[2018-11-28] MEDS: AMLODIPINE 10 MG TAB PO SCH (08:22)
[2018-11-28] MEDS: NYSTATIN 30 GM POWDER BTL TOP SCH ×2 (08:22→20:27)
[2018-11-28] MEDS: HYDROCHLOROTHIAZIDE 25 MG TAB PO SCH (08:22)
[2018-11-28] MEDS: INSULIN ASPART [NOVOLOG] 3 ML PEN SC SCH ×7 (08:24→20:29)
[2018-11-28] MEDS: ENOXAPARIN 40 MG/0.4 ML SYG SC SCH (08:25)
[2018-11-28] MEDS: ALPRAZOLAM 0.25 MG TAB PO PRN ×2 (08:33→20:27)
[2018-11-28 14:28] VITALS: BP 130/77; PULSE 94; RESP 18
[2018-11-28] MEDS: CEFTRIAXONE 1 GM/50 ML (PMX) 50 ML IVPB SCH (16:02)
--- NOTE | 2018-11-28 16:10 | NUR ---
Spoke to Dr. Blood. Patient is still unable to go home for some wheezing and oxygen dependence. Received an order to wean pt off if O2 sat is >92%. Will carry out.
--- NOTE | 2018-11-28 17:02 | PN ---
Date/Time of Note Date/Time of Note DATE: 11/28/18 TIME: 17:00 Assessment/Plan VTE Prophylaxis Risk score (from Nsg)>0 risk: 3 Pharmacological prophylaxis: LMWH Lines/Catheters IV Catheter Type (from Nrsg): Saline Lock Urinary Cath still in place: No Assessment/Plan Hospital Course 1. COPD exacerbation Patient continues to have bronchial spasms IV antibiotics Have discontinued Solu-Medrol as patient's anxiety was worsening Continue Pulmicort Continue scheduled DuoNeb Phenergan with codeine for cough Continue supplemental O2 as needed 2. Diabetes-sugars have improved Continue current regimen 3. Hypertension Continue meds 4. Morbid obesity Lifestyle changes 5. Leukocytosis secondary to steroids On IV antibiotics 6. Anxiety Resumed home Xanax Psychiatry consultation appreciated Prophylaxis: Lovenox DC planning: Patient not stable for DC, continues to have wheezing and requiring supplemental O2, anticipate DC to home in 1-2 days Result Diagram: 11/26/18 0553 11/26/18 0553 Results 24hrs Laboratory Tests Test 11/27/18 17:57 11/27/18 20:31 11/28/18 08:05 11/28/18 12:52 Bedside Glucose 202 159 195 124 Subjective 24 Hr Interval Summary Respiratory: cough, shortness of breath Exam/Review of Systems Vital Signs Vitals Vital Signs Date Temp Pulse Resp B/P (MAP) Pulse Ox O2 O2 Flow FiO2 Time Delivery Rate 11/28/18 97.7 94 18 130/77 96 14:28 (94) 11/28/18 Nasal 2.0 14:08 Cannula 11/27/18 21 20:43 Intake and Output 11/27/18 11/27/18 11/28/18 1414:59 22:59 06:59 IntakeIntake Total 600 ml 290 ml 730 ml OutputOutput Total 2300 ml 220 ml 900 ml BalanceBalance -1700 ml 70 ml -170 ml Exam Constitutional: alert, oriented Respiratory: wheezing Cardiovascular: regular rate and rhythm Gastrointestinal: soft; No distended Musculoskeletal: nl extremities to inspection Medications Medications Current Medications IV Flush (NS 3 ml) 3 ml PER PROTOCOL IV ; Start 11/24/18 at 16:00 Ondansetron HCl (Zofran Inj) 4 mg Q6H PRN IV NAUSEA AND/OR VOMITING; Start 11/24/18 at 16:00 Acetaminophen (Tylenol Tab) 650 mg Q6H PRN PO PAIN LEVEL 1-3 OR FEVER; Start 11/24/18 at 16:00 Acetaminophen/ Hydrocodone Bitart ([place] (5/325)) 1 tab Q6H PRN PO MODERATE PAIN LEVEL 4-6 Last administered on 11/24/18at 23:15; Admin Dose 1 TAB; Start 11/24/18 at 16:00 Morphine Sulfate (morphine) 2 mg Q4H PRN IV SEVERE PAIN LEVEL 7-10; Start 11/24/18 at 16:00 Docusate Sodium (Colace) 100 mg Q12H PRN PO CONSTIPATION; Start 11/24/18 at 16:00 Zolpidem Tartrate (Ambien) 5 mg QHS PRN PO SLEEP; Start 11/24/18 at 16:00 Enoxaparin Sodium (Lovenox) 40 mg DAILY SC Last administered on 11/28/18at 08:25; Admin Dose 40 MG; Start 11/24/18 at 18:00 Albuterol/ Ipratropium (Duoneb) 3 ml Q4H RESP THERAPY PRN HHN SHORTNESS OF B REATH Last administered on 11/24/18at 23:37; Admin Dose 3 ML; Start 11/24/18 at 16:00 Ceftriaxone Sodium 50 ml @ 100 mls/hr Q24H IVPB Last administered on 11/28/18 16:02; Admin Dose 100 MLS/HR; Start 11/24/18 at 17:00 Amlodipine Besylate (Norvasc) 10 mg DAILY PO Last administered on 11/28/18 08: 22; Admin Dose 10 MG; Start 11/25/18 at 09:00 Hydrochlorothiazide (Hydrochlorothiazide) 25 mg DAILY PO Last administered on 11/28/18 08:22; Admin Dose 25 MG; Start 11/25/18 at 09:00 Nicotine (Nicoderm 21 Mg/ 24hr) 1 patch DAILY TRANSDERM Last administered on 11/28/18 08:20; Admin Dose 1 PATCH; Start 11/25/18 at 09:00 Nitroglycerin (Nitroglycerin (Sl Tab) 0.4 Mg) 1 tab [id number] PRN SL CHEST PAIN; Start 11/24/18 at 16:00 Diagnostic Test (Pha) (Accu-Chek) 1 ea 02 XX Last administered on 11/27/18at 02:44; Admin Dose 1 EA; Start 11/25/18 at 02:00 Insulin Aspart (Novolog Insulin Pen) NOVOLOG *MILD* ALGORITHM WITH MEALS BEDTIME SC Last administered on 11/28/18at 08:24; Admin Dose 2 UNIT; Start 11/24/18 at 18:00 Miscellaneous Information 1 ea NOTE XX ; Start 11/24/18 at 17:00 Glucose (Glutose) 15 gm Q15M PRN PO DECREASED GLUCOSE; Start 11/24/18 at 17:00 Glucose (Glutose) 22.5 gm Q15M PRN PO DECREASED GLUCOSE; Start 11/24/18 at 17:00 Dextrose (D50w Syringe) 25 ml Q15M PRN IV DECREASED GLUCOSE; Start 11/24/18 at 17:00 Dextrose (D50w Syringe) 50 ml Q15M PRN IV DECREASED GLUCOSE; Start 11/24/18 at 17:00 Glucagon (Glucagen) 1 mg Q15M PRN IM DECREASED GLUCOSE; Start 11/24/18 at 17:00 Glucose (Glutose) 15 gm Q15M PRN BUCCAL DECREASED GLUCOSE; Start 11/24/18 at 17:00 Azithromycin 250 ml @ 250 mls/hr Q24H IVPB Last administered on 11/27/18at 20:31; Admin Dose 250 MLS/HR; Start 11/24/18 at 21:00 Promethazine HCl/ Codeine (Phenergan/ Codeine) 5 ml Q4H PRN PO COUGH Last administered on 11/28/18at 08:34; Admin Dose 5 ML; Start 11/25/18 at 11:30 Albuterol/ Ipratropium (Duoneb) 3 ml Q4H RESP THERAPY HHN Last administered on 11/28/18at 14:08; Admin Dose 3 ML; Start 11/25/18 at 13:00 Nystatin (Nystatin Powder) 1 applic BID TOP Last administered on 11/28/18at 08:22; Admin Dose 1 APPLIC; Start 11/25/18 at 21:00 Alprazolam (Xanax) 0.25 mg Q6H PRN PO ANXIETY Last administered on 11/28/18at 08:33; Admin Dose 0.25 MG; Start 11/25/18 at 12:00 Budesonide (Pulmicort (Neb)) 0.5 mg BID RESP THERAPY HHN Last administered on 11/28/18at 07:46; Admin Dose 0.5 MG; Start 11/25/18 at 12:00 Insulin Glargine (Lantus) 40 units QHS SC Last administered on 11/27/18at 20:36; Admin Dose 40 UNITS; Start 11/25/18 at 21:00 Insulin Aspart (Novolog Insulin Pen) 13 unit WITH MEALS SC Last administered on 11/28/18at 08:24; Admin Dose 13 UNIT; Start 11/26/18 at 12:15 MELITA CARRANZA Nov 28, 2018 17:02
--- NOTE | 2018-11-28 18:48 | NUR ---
END OF SHIFT NOTES: PT STABLE, ALERT & ORIENTED X4. NO DISTRESS NOTED. BREATHING TREATMENTS GIVEN BY RT. ACCUCHECKS DONE, INSULIN COVERAGE GIVEN. MEDICATED FOR ANXIETY AND COUGH X1. INSTRUCTED PT TO CALL FOR ASSISTANCE. VS WNL.HOURLY ROUNDING. CALL LIGHT WITHIN REACH.ALL NEEDS MET. NO NEW COMPLAINTS
[2018-11-28 19:45] VITALS: BP 137/82; PULSE 99; RESP 18
[2018-11-28] MEDS: INSULIN GLARGINE [LANTus] (100 UNITS/ML) SYG SC SCH (20:31)
[2018-11-28] MEDS: HYDROCODONE/APAP (5/325) TAB PO PRN (21:13)
[2018-11-28] MEDS: AZITHROMYCIN 500MG/NS (PMX) 250 ML IVPB SCH (21:14)
[2018-11-29] MEDS: ALBUTEROL/IPRATROPIUM (NEB) 3 ML AMP HHN SCH ×6 (00:10→23:56)
[2018-11-29 02:09] VITALS: BP 123/83; PULSE 87; RESP 18
[2018-11-29] MEDS: ACCU-CHEK XX SCH (02:27)
--- NOTE | 2018-11-29 05:04 | NUR ---
SLEPT FAIRLY WELL. DENIES PAIN. CONTINUED WITH ANTIBIOTICS AND BREATHING TX. PT NOT IN DISTRESS. NEEDS ATTENDED. CALL LIGHT WITHIN REACH.
[2018-11-29 07:21] VITALS: BP 152/87; PULSE 84; RESP 18
[2018-11-29] MEDS: BUDESONIDE (NEB) 0.5MG/2ML AMP HHN SCH ×2 (08:00→20:24)
[2018-11-29] MEDS: HYDROCHLOROTHIAZIDE 25 MG TAB PO SCH (08:22)
[2018-11-29] MEDS: AMLODIPINE 10 MG TAB PO SCH (08:22)
[2018-11-29] MEDS: NYSTATIN 30 GM POWDER BTL TOP SCH ×2 (08:22→20:59)
[2018-11-29] MEDS: NICOTINE (21 MG/24 HR) PATCH TRANSDERM SCH (08:22)
[2018-11-29] MEDS: ENOXAPARIN 40 MG/0.4 ML SYG SC SCH (08:28)
[2018-11-29] MEDS: INSULIN ASPART [NOVOLOG] 3 ML PEN SC SCH ×7 (08:29→20:54)
[2018-11-29] MEDS: PROMETHAZINE/CODEINE 5ML CUP PO PRN ×3 (09:58→21:22)
[2018-11-29] MEDS: ALPRAZOLAM 0.25 MG TAB PO PRN ×2 (14:31→20:45)
[2018-11-29 14:33] VITALS: BP 121/80; PULSE 87; RESP 18
[2018-11-29] MEDS: CEFTRIAXONE 1 GM/50 ML (PMX) 50 ML IVPB SCH (17:26)
--- NOTE | 2018-11-29 18:30 | NUR ---
End of shift report VS within acceptable range. Patient still has intermittent difficulty with breathing, lung sounds diminished . Cough medications been given as ordered.Patient is still on oxygen at 2 l/min via nasal canula, sat 93-94% . Breathing treatment been given every 4 hours, with some relieve of symptoms. Blood sugar fluctuated within acceptable range, Insulin coverage given as ordered. Patient remained safe during the day, bed alarm is on at all times, call light within reach.Will continue to monitor.
--- NOTE | 2018-11-29 19:11 | PN ---
Date/Time of Note Date/Time of Note DATE: 11/29/18 TIME: 19:10 Assessment/Plan VTE Prophylaxis Risk score (from Nsg)>0 risk: 2 SCD applied (from Nsg): Yes SCD contraindicated: low risk/ambulating Pharmacological prophylaxis: LMWH Lines/Catheters IV Catheter Type (from Nrsg): Saline Lock Urinary Cath still in place: No Assessment/Plan Hospital Course Assessment and plan 1. Acute COPD exacerbation, likely viral, stable continue supportive care 2. CELESTE? Outpatient testing 3. Type 2 diabetes 4. Metabolic syndrome troponins negative 5. Hypertension 6. Obesity disorder 7. Generalized anxiety disorder continue Xanax Subjective: Remains on supplemental oxygen. Cough noted no fever. Objective: Vital signs stable Physical exam No pallor JVD adenopathy Regular no murmur gallop Diminished breath sounds bilaterally no tachypnea Bowel sounds diminished nontender nondistended obese no rigidity rebound guarding No edema/Homans Result Diagram: 11/26/18 0553 11/26/18 0553 Results 24hrs Laboratory Tests Test 11/28/18 20:25 11/29/18 02:24 11/29/18 08:24 11/29/18 12:36 Bedside Glucose 188 125 163 181 Test 11/29/18 17:27 Bedside Glucose 211 Exam/Review of Systems Vital Signs Vitals Vital Signs Date Temp Pulse Resp B/P (MAP) Pulse Ox O2 O2 Flow FiO2 Time Delivery Rate 11/29/18 85 16 92 Nasal 2.0 16:10 Cannula 11/29/18 98.9 121/80 14:33 (94) 11/29/18 21 05:23 Intake and Output 11/28/18 11/28/18 11/29/18 1515:00 23:00 07:00 IntakeIntake Total 840 ml 810 ml 240 ml OutputOutput Total 800 ml 700 ml 500 ml BalanceBalance 40 ml 110 ml -260 ml Medications Medications Current Medications IV Flush (NS 3 ml) 3 ml PER PROTOCOL IV ; Start 11/24/18 at 16:00 Ondansetron HCl (Zofran Inj) 4 mg Q6H PRN IV NAUSEA AND/OR VOMITING; Start 11/24/18 at 16:00 Acetaminophen (Tylenol Tab) 650 mg Q6H PRN PO PAIN LEVEL 1-3 OR FEVER; Start 11/24/18 at 16:00 Acetaminophen/ Hydrocodone Bitart ([place] (5/325)) 1 tab Q6H PRN PO MODERATE PAIN LEVEL 4-6 Last administered on 11/28/18at 21:13; Admin Dose 1 TAB; Start 11/24/18 at 16:00 Morphine Sulfate (morphine) 2 mg Q4H PRN IV SEVERE PAIN LEVEL 7-10; Start 11/24/18 at 16:00 Docusate Sodium (Colace) 100 mg Q12H PRN PO CONSTIPATION; Start 11/24/18 at 16:00 Zolpidem Tartrate (Ambien) 5 mg QHS PRN PO SLEEP; Start 11/24/18 at 16:00 Enoxaparin Sodium (Lovenox) 40 mg DAILY SC Last administered on 11/29/18at 08:28; Admin Dose 40 MG; Start 11/24/18 at 18:00 Albuterol/ Ipratropium (Duoneb) 3 ml Q4H RESP THERAPY PRN HHN SHORTNESS OF BREATH Last administered on 11/24/18at 23:37; Admin Dose 3 ML; Start 11/24/18 at 16:00 Ceftriaxone Sodium 50 ml @ 100 mls/hr Q24H IVPB Last administered on 11/29/18at 17:26; Admin Dose 100 MLS/HR; Start 11/24/18 at 17:00 Amlodipine Besylate (Norvasc) 10 mg DAILY PO Last administered on 11/29/18at 08:22; Admin Dose 10 MG; Start 11/25/18 at 09:00 Hydrochlorothiazide (Hydrochlorothiazide) 25 mg DAILY PO Last administered on 11/29/18at 08:22; Admin Dose 25 MG; Start 11/25/18 at 09:00 Nicotine (Nicoderm 21 Mg/ 24hr) 1 patch DAILY TRANSDERM Last administered on 11/29/18at 08:22; Admin Dose 1 PATCH; Start 11/25/18 at 09:00 Nitroglycerin (Nitroglycerin (Sl Tab) 0.4 Mg) 1 tab [id number] PRN SL CHEST PAIN; Start 11/24/18 at 16:00 Diagnostic Test (Pha) (Accu-Chek) 1 ea 02 XX Last administered on 11/29/18at 02:27; Admin Dose 1 EA; Start 11/25/18 at 02:00 Insulin Aspart (Novolog Insulin Pen) NOVOLOG *MILD* ALGORITHM WITH MEALS BEDTIME SC Last administered on 11/29/18at 17:35; Admin Dose 2 UNIT; Start 11/24/18 at 18:00 Miscellaneous Information 1 ea NOTE XX ; Start 11/24/18 at 17:00 Glucose (Glutose) 15 gm Q15M PRN PO DECREASED GLUCOSE; Start 11/24/18 at 17:00 Glucose (Glutose) 22.5 gm Q15M PRN PO DECREASED GLUCOSE; Start 11/24/18 at 17:00 Dextrose (D50w Syringe) 25 ml Q15M PRN IV DECREASED GLUCOSE; Start 11/24/18 at 17:00 Dextrose (D50w Syringe) 50 ml Q15M PRN IV DECREASED GLUCOSE; Start 11/24/18 at 17:00 Glucagon (Glucagen) 1 mg Q15M PRN IM DECREASED GLUCOSE; Start 11/24/18 at 17:00 Glucose (Glutose) 15 gm Q15M PRN BUCCAL DECREASED GLUCOSE; Start 11/24/18 at 17:00 Azithromycin 250 ml @ 250 mls/hr Q24H IVPB Last administered on 11/28/18at 21:14; Admin Dose 250 MLS/HR; Start 11/24/18 at 21:00 Promethazine HCl/ Codeine (Phenergan/ Codeine) 5 ml Q4H PRN PO COUGH Last administered on 11/29/18at 14:31; Admin Dose 5 ML; Start 11/25/18 at 11:30 Albuterol/ Ipratropium (Duoneb) 3 ml Q4H RESP THERAPY HHN Last administered on 11/29/18at 16:09; Admin Dose 3 ML; Start 11/25/18 at 13:00 Nystatin (Nystatin Powder) 1 applic BID TOP Last administered on 11/29/18at 08:22; Admin Dose 1 APPLIC; Start 11/25/18 at 21:00 Alprazolam (Xanax) 0.25 mg Q6H PRN PO ANXIETY Last administered on 11/29/18at 14:31; Admin Dose 0.25 MG; Start 11/25/18 at 12:00 Budesonide (Pulmicort (Neb)) 0.5 mg BID RESP THERAPY HHN Last administered on 11/29/18at 08:00; Admin Dose 0.5 MG; Start 11/25/18 at 12:00 Insulin Glargine (Lantus) 40 units QHS SC Last administered on 11/28/18at 20:31; Admin Dose 40 UNITS; Start 11/25/18 at 21:00 Insulin Aspart (Novolog Insulin Pen) 13 unit WITH MEALS SC Last administered on 11/29/18at 17:34; Admin Dose 13 UNIT; Start 11/26/18 at 12:15 BIPIN WEAVER MD Nov 29, 2018 19:11
[2018-11-29] MEDS ORDERED: ALBUTEROL/IPRATROPIUM (NEB) 3 ML AMP HHN PRN (19:30)
[2018-11-29 19:52] VITALS: BP 142/85; PULSE 84; RESP 18
[2018-11-29] MEDS: LACTOBACILLUS RHAMNOSUS CAP PO SCH (20:45)
[2018-11-29] MEDS: predniSONE 20 MG TAB PO SCH (20:52)
[2018-11-29] MEDS: INSULIN GLARGINE [LANTus] (100 UNITS/ML) SYG SC SCH (20:56)
[2018-11-30 01:22] VITALS: BP 120/79; PULSE 85; RESP 18
[2018-11-30] MEDS: ACCU-CHEK XX SCH (02:00)
[2018-11-30] MEDS: ALPRAZOLAM 0.25 MG TAB PO PRN ×2 (05:43→16:53)
[2018-11-30] MEDS: PROMETHAZINE/CODEINE 5ML CUP PO PRN ×3 (05:43→19:04)
--- NOTE | 2018-11-30 06:47 | NUR ---
re: shift note patient is alert and oriented, vss, no signs of distress noted. remains on nasal cannula and nebulizers, some wheezing noted. ambulates with assist. remains free from injury and falls. will continue to monitor.
[2018-11-30 07:28] VITALS: BP 122/71; PULSE 78; RESP 20
[2018-11-30] MEDS: BUDESONIDE (NEB) 0.5MG/2ML AMP HHN SCH ×2 (07:32→21:24)
[2018-11-30] MEDS: ALBUTEROL/IPRATROPIUM (NEB) 3 ML AMP HHN SCH ×2 (07:32→16:31)
[2018-11-30] MEDS: INSULIN ASPART [NOVOLOG] 3 ML PEN SC SCH ×7 (08:25→21:19)
[2018-11-30] MEDS: LACTOBACILLUS RHAMNOSUS CAP PO SCH ×2 (09:23→21:13)
[2018-11-30] MEDS: HYDROCHLOROTHIAZIDE 25 MG TAB PO SCH (09:23)
[2018-11-30] MEDS: AMLODIPINE 10 MG TAB PO SCH (09:23)
[2018-11-30] MEDS: ENOXAPARIN 40 MG/0.4 ML SYG SC SCH (09:24)
[2018-11-30] MEDS: NYSTATIN 30 GM POWDER BTL TOP SCH ×2 (09:30→21:19)
[2018-11-30] MEDS: predniSONE 20 MG TAB PO SCH (10:57)
[2018-11-30] MEDS: NICOTINE (21 MG/24 HR) PATCH TRANSDERM SCH (10:58)
[2018-11-30] MEDS ORDERED: MAGNESIUM SULFATE 2 GM/50 ML 50 ML IVPB ONE (11:30)
[2018-11-30 14:10] VITALS: BP 134/78; PULSE 75; RESP 20
--- NOTE | 2018-11-30 16:57 | DS ---
Date/Time of Note Date/Time of Note DATE: 11/30/18 TIME: 16:55 Discharge Summary Admission/Discharge Info Admit Date/Time Nov 26, 2018 at 09:30 Discharge Date/Time Patient Condition: Good Procedures Chest x-ray: No acute process Venous Doppler bilateral lower extremities: No DVT Influenza testing: Negative Hx of Present Illness \ with shortness of breath Hospital Course Hospital course: Admitted with shortness of breath wheezing. Treated for COPD exacerbation. Patient feels better and wishes to go home. Stable and fit for discharge. He has his rescue breathing treatment at home. We will go home on a short course of prednisone. Incidentally his TSH found to be low. Will ask case management to assist in outpatient endocrinology eval for hyperthyroidism. Assessment and plan 1. Acute COPD exacerbation, likely viral, stable continue supportive care stable and fit for discharge on no stone short course 2. CELESTE? Outpatient testing 3. Type 2 diabetes 4. Metabolic syndrome troponins negative 5. Hypertension 6. Obesity disorder 7. Generalized anxiety disorder? 8. Symptomatic hyperthyroidism? Home Meds Active Scripts Nicotine* (Nicotine* Patch) 21 mg/day Patch, 1 EACH TD DAILY for 60 Days, #60 PATCH 5 Refills Prov:DAVIS LIMON MD 11/06/18 Albuterol Sulfate* (Proair HFA*) 8.5 Gm Hfa.aer.ad, 2 PUFF INH Q4H PRN for WHEEZING AND SOB, #1 INHALER 5 Refills Prov:DAVIS LIMON MD 11/06/18 Budesonide-Formoterol Fumarate* (Symbicort*) 160-4.5 Hfa.aer.ad, 2 PUFF INHALATION BID, #1 EACH 5 Refills Prov:DAVIS LIMON MD 11/06/18 Insulin Glargine* (Lantus*) 100 Unit/Ml Soln, 36 UNIT SC QHS for 30 Days, #1 VIAL Prov:BRISEYDA GIANG [employer]TER [employer] 01/30/18 Insulin Aspart* (Novolog Insulin Pen*) 100 Unit/Ml Soln, 9 UNIT SC WITH MEALS for 30 Days, #1 VIAL Prov:BRISEYDA GIANG [employer]RAFTER [employer] DESIGN 01/30/18 Reported Medications Alprazolam* (Alprazolam*) 0.25 Mg Tablet, 0.25 MG PO DAILY PRN for ANXIETY, TAB 11/24/18 Amlodipine Besylate* (Amlodipine Besylate*) 10 Mg Tablet, 10 MG PO DAILY, #30 TAB 11/04/18 Hydrochlorothiazide* (Hydrochlorothiazide*) 25 Mg Tab, 25 MG PO DAILY, #30 TAB 11/04/18 Glyburide* (Glyburide*) 5 Mg Tablet, 5 MG PO DAILY, #30 TAB 11/04/18 Nitroglycerin* (Nitroglycerin* SL) 0.4 Mg Tab.subl, 0.4 MG SL Q5MIN PRN for CHEST PAIN, BOTTLE 11/04/18 Discontinued Scripts Prednisone* (Prednisone*) 20 Mg Tab, 40 MG PO DAILY for 3 Days, #3 TAB Prov:DAVIS LIMON MD 11/06/18 Primary Care Provider Mary Becerra DO Time spent on discharge: > 30 minutes Pending Labs Laboratory Tests Test 11/29/18 17:27 11/29/18 20:48 11/30/18 05:10 11/30/18 08:15 Bedside 211 132 198 Glucose mg/dL (70-220) mg/dL (70-220) mg/dL (70-220) White Blood 12.9 Count 10^3/ul (4.8-1 0.8) Red Blood 4.65 Count 10^6/ul (4.70- 6.10) Hemoglobin 14.0 g/dl (14.0-18. 0) Hematocrit 39.7 % (42.0-52.0) Mean 85.4 Corpuscular fl (82.0-101.0 Volume ) Mean 30.1 Corpuscular pg (29.0-33.0) Hemoglobin Mean 35.3 Corpuscular g/dl (32.0-37. Hemoglobin Conc 0) ent Red Cell 14.7 Distribution % (11.5-14.5) Width Platelet Count 382 10^3/UL (140-4 15) Mean Platelet 9.8 Volume fl (7.4-10.4) Immature 1.300 Granulocytes % % (0.001-0.429 ) Neutrophils % 78.7 % (39.0-77.0) Lymphocytes % 15.8 % (15.0-51.0) Monocytes % 3.1 % (0.0-11.0) Eosinophils % 0.7 % (0.0-7.0) Basophils % 0.4 % (0.0-2.0) Nucleated Red 0.0 Blood Cells % /100WBC (0.0-0 .0) Immature 0.170 Granulocytes # 10^3/ul (0.0-0 .031) Neutrophils # 10.1 10^3/ul (1.6-7 .5) Lymphocytes # 2.0 10^3/ul (0.8-2 .9) Monocytes # 0.4 10^3/ul (0.3-0 .9) Eosinophils # 0.1 10^3/ul (0.0-0 .5) Basophils # 0.1 10^3/ul (0.0-0 .1) Nucleated Red 0.0 Blood Cells # 10^3/ul (0.0-0 .0) Prothrombin 13.3 Time Sec (11.9-14.9 ) Prothrombin 1.0 Time Ratio INR 1.00 International Normalized Rati o Sodium Level 136 mmol/L (135-14 4) Potassium 4.1 Level mmol/L (3.5-5. 1) Chloride Level 97 mmol/L (97-110 ) Carbon Dioxide 31 Level mmol/L (21-31) Anion Gap 8 (5-13) Blood Urea 24 Nitrogen mg/dl (7-20) Creatinine 0.90 mg/dl (0.61-1. 24) Est Glomerular > 60 Filtrat mL/min (>60) Rate mL/min Glucose Level 217 mg/dl (70-220) Calcium Level 9.2 mg/dl (8.4-10. 2) Magnesium 2.1 Level mg/dl (1.7-2.5 ) Troponin I < 0.012 ng/ml (0.000-0 .120) Thyroid 0.193 Stimulating MIU/L (0.465-4 Hormone (TSH) .680) Test 11/30/18 12:13 Bedside 236 Glucose mg/dL (70-220) Microbiology Date/Time Source Procedure Growth Status 11/30/18 05:30 Nasopharyngeal Influenza Types A,B Direct EIA - Final Complete BIPIN WEAVER MD Nov 30, 2018 16:57
--- NOTE | 2018-11-30 16:58 | PDOCDIS ---
Discharge Instructions CONDITION [id number] Patient Condition: [id number] Stable HOME CARE INSTRUCTIONS: [id number] Diet Instructions: [id number] Regular ACTIVITY: [id number] Activity Restrictions: [id number] Slowly Increase Activity Do not Drive FOLLOW UP/APPOINTMENTS Follow-up Plan Appointment primary 1 week Referral placed to endocrinology to evaluate thyroid BIPIN WEAVER MD Nov 30, 2018 16:58
[2018-11-30] MEDS ORDERED: PRED20TA PO (16:59)
[2018-11-30] MEDS ORDERED: CEFTRIAXONE 2 GM/50 ML (PMX) 50 ML IVPB SCH (17:00)
--- NOTE | 2018-11-30 18:21 | NUR ---
End of shift summary Pt alert oriented X4, able to communicate verbally and verbalize needs. No c/o pain/distress during the shift. SOB on exertion. Non productive cough, Blood glucose kept maintained with insulin. On breathing treatments. To be discharged home tomorrow once case folder has referrals arranged. Continue to monitor.
[2018-11-30 19:36] VITALS: BP 140/90; PULSE 87; RESP 18
[2018-11-30] MEDS: INSULIN GLARGINE [LANTus] (100 UNITS/ML) SYG SC SCH (21:18)
[2018-12-01] MEDS: ALBUTEROL/IPRATROPIUM (NEB) 3 ML AMP HHN SCH ×2 (00:26→09:38)
[2018-12-01] MEDS: PROMETHAZINE/CODEINE 5ML CUP PO PRN ×3 (00:57→13:55)
[2018-12-01] MEDS: ALPRAZOLAM 0.25 MG TAB PO PRN ×2 (01:18→09:36)
[2018-12-01 01:46] VITALS: BP 139/78; PULSE 78; RESP 18
[2018-12-01] MEDS: ACCU-CHEK XX SCH (02:00)
--- NOTE | 2018-12-01 05:48 | NUR ---
No event overnight. Remain with non-productive coughing, medicated once on the shift and was helpful. PRN Xanax given as needed, patient slept at long interval. Remain with 02 inhalation @ 2lpm/nc , routine breathing tx administered by RT. Fall risks precautions observed, all needs attended to promptly. Vital signs stable.
[2018-12-01] MEDS: INSULIN ASPART [NOVOLOG] 3 ML PEN SC SCH ×4 (08:00→13:01)
[2018-12-01 08:03] VITALS: BP 160/87; PULSE 74; RESP 20
[2018-12-01] MEDS: ENOXAPARIN 40 MG/0.4 ML SYG SC SCH (08:44)
[2018-12-01] MEDS: predniSONE 20 MG TAB PO SCH (08:46)
[2018-12-01] MEDS: NICOTINE (21 MG/24 HR) PATCH TRANSDERM SCH (08:46)
[2018-12-01] MEDS: AMLODIPINE 10 MG TAB PO SCH (08:46)
[2018-12-01] MEDS: LACTOBACILLUS RHAMNOSUS CAP PO SCH (08:46)
--- NOTE | 2018-12-01 08:47 | NUR ---
CM NOTE: FOLLOWUP APPT Order for outpatient f/u and referral to endocrinology faxed to Usman DINERO at [facility] (P:[phone], F:[phone]). Confirmation received. Insurance to f/u with pt for outpatient f/u appt. Jonel Ward RN CM [id number]
[2018-12-01] MEDS: NYSTATIN 30 GM POWDER BTL TOP SCH (09:36)
[2018-12-01] MEDS: BUDESONIDE (NEB) 0.5MG/2ML AMP HHN SCH (09:39)
[2018-12-01] MEDS: HYDROCHLOROTHIAZIDE 25 MG TAB PO SCH (09:43)
--- NOTE | 2018-12-01 12:15 | NUR ---
SS NOTE: F/U RE: D/C SW MET WITH PT AT BEDSIDE TO DISCUSS D/C AND PROVIDE RESOURCES. PT APPEARED TO BE A&OX4 AND COPING APPROPRIATELY. SW DISCUSSED AND PT DECLINED CUSTODIAL PLACEMENT RESOURCES. PT STATED THAT HE PLANNED ON TO GO BACK TO HIS VEHICLE PARKED IN [place]. PT STATED THAT HIS CAR IS PARKED IN THE PARKING LOT FOR THE BUSINESS AT [address] [place] [address]. PT STATED THAT HE HAS A GOOD SUPPORTIVE RELATIONSHIP WITH THE BUSINESS HUNTER WHO ALLOWS HIM TO STAY IN HIS CAR THERE AND RECEIVE MAIL AT THAT LOCATION. PT WAS PROVIDED A MEALS DURING ADMISSION. SW DISCUSSED AND STATED THAT HE ALREADY HAS A PCP (DR CINDY PICKETT) AND PLANS FOR F/U APPOINTMENT. SW DISCUSSED AND DECLINED F/U BEHAVIORAL/MENTAL HEALTH CARE RESOURCES. PT PROVIDED RX AND PT PLANS TO GO TO THE PHARMACY. SW DISCUSSED AND PROVIDED CONTACTS FOR [address] [place] [address] AND OTHER HOMELESS RESOURCES. PT WAS ASSESSED FOR WEATHER APPROPRIATE CLOTHING. PT'S RN DISCUSSED AND EDUCATED PT ON D/C INSTRUCTIONS. PLAN IS FOR PT TO GO TO THE [facility] DIRECT[facility] OF BLOOD POINT AND THEN THE [facility] FOR THE EVENING. PT STATED THAT HE WILL HAVE EITHER TAKE HIS OWN TAXI OR HAVE A FRIEND PROVIDE TRANSPORTATION BACK TO HIS CAR. PT SIGNED THE HOMELESS DISCHARGE CONSENT FORM AND COPY PLACED IN THE PATIENT'S CHART. SW REMAINS AVAILABLE FOR F/U NEEDED.
--- NOTE | 2018-12-01 13:29 | DS ---
Date/Time of Note Date/Time of Note DATE: 12/01/18 TIME: 13:22 Discharge Summary Admission/Discharge Info Admit Date/Time Nov 26, 2018 at 09:30 Discharge Date/Time Discharge Diagnosis 1. COPD exacerbation, improved, follow up with PCP 2. CELESTE? Outpatient sleep study 3. Type 2 diabetes, stable 4. Metabolic syndrome 5. Hypertension, controlled 6. Obesity disorder 7. Low TSH, outpatient endocrinology is arranged Patient Condition: Stable Hospital Course 58 years old obese male with DM, HTN and COPD came in with shortness of breath that he got treatment with neb, steroid for COPD exacerbation. Symptoms improved, he is discharged with tapering dosage of prednisone. Patient has cough sometimes with eating or drinking since childhood, more lately. No food stuck feeling, no pain. I offer to have a speech therapist to see him and further work up that he declines and he will check with his PCP outpatient. TSH is low at 0.193. Outpatient endocrinology consultation is arranged. Home Meds Active Scripts Prednisone* (Prednisone*) 20 Mg Tab, 20 MG PO DAILY for 4 Days, #4 TAB Prov:BIPIN WEAVER MD 11/30/18 Nicotine* (Nicotine* Patch) 21 mg/day Patch, 1 EACH TD DAILY for 60 Days, #60 PATCH 5 Refills Prov:DAVIS LIMON MD 11/06/18 Albuterol Sulfate* (Proair HFA*) 8.5 Gm Hfa.aer.ad, 2 PUFF INH Q4H PRN for WHEEZING AND SOB, #1 INHALER 5 Refills Prov:DAVIS LIMON MD 11/06/18 Budesonide-Formoterol Fumarate* (Symbicort*) 160-4.5 Hfa.aer.ad, 2 PUFF INHALATION BID, #1 EACH 5 Refills Prov:DAVIS LIMON MD 11/06/18 Insulin Glargine* (Lantus*) 100 Unit/Ml Soln, 36 UNIT SC QHS for 30 Days, #1 VIAL Prov:BRISEYDA GIANG NP 01/30/18 Insulin Aspart* (Novolog Insulin Pen*) 100 Unit/Ml Soln, 9 UNIT SC WITH MEALS for 30 Days, #1 VIAL Prov:BRISEYDA GIANG NP 01/30/18 Reported Medications Alprazolam* (Alprazolam*) 0.25 Mg Tablet, 0.25 MG PO DAILY PRN for ANXIETY, TAB 11/24/18 Amlodipine Besylate* (Amlodipine Besylate*) 10 Mg Tablet, 10 MG PO DAILY, #30 TAB 11/04/18 Hydrochlorothiazide* (Hydrochlorothiazide*) 25 Mg Tab, 25 MG PO DAILY, #30 TAB 11/04/18 Glyburide* (Glyburide*) 5 Mg Tablet, 5 MG PO DAILY, #30 TAB 11/04/18 Nitroglycerin* (Nitroglycerin* SL) 0.4 Mg Tab.subl, 0.4 MG SL Q5MIN PRN for CHEST PAIN, BOTTLE 11/04/18 Discontinued Scripts Prednisone* (Prednisone*) 20 Mg Tab, 40 MG PO DAILY for 3 Days, #3 TAB Prov:DAVIS LIMON MD 11/06/18 Follow-up Plan Appointment primary 1 week Referral placed to endocrinology to evaluate thyroid Primary Care Provider Mary Becerra DO Pending Labs Laboratory Tests Test 11/30/18 17:57 11/30/18 21:15 12/01/18 02:09 12/01/18 08:40 Bedside 203 284 163 104 Glucose mg/dL (70-220) mg/dL (70-220) mg/dL (70-220) mg/dL (70-220) Test 12/01/18 12:47 Bedside 251 Glucose mg/dL (70-220) STACIE SPENCER MD Dec 01, 2018 13:29
[2018-12-01 13:47] VITALS: BP 133/82; PULSE 84; RESP 18
--- NOTE | 2018-12-01 14:30 | NUR ---
58 y/o male alert oriented X3, no complaint of pain/distress during the shift. All due medication was given. complained of choking last night. Followed up by MD. Pt does not want any treatment to be done at this time. Pts O2 sat 95% on RA. Pt discharged home with discharge medication list, explained all the medication, teaching provided on COPD. IV line removed, name bands cut, Pt sent to front lobby via wheelchair. Said will be picked up by a friend.
== END 2018-12-01 14:30 | disposition home or self-care (01) | DRG 192 ==
LOC: E/R 10:39 → 2NE 13:39 → EDBEDREQSVC 14:00 → OBSVTOIN 11-26 09:30
PROVIDERS: ADMIT Internal Medicine; ATTEND Internal Medicine
DX: J44.1 Chronic obstructive pulmonary disease with (acute) exacerbation (principal); E11.65 Type 2 diabetes mellitus with hyperglycemia; Z68.29 Body mass index [BMI] 29.0-29.9, adult; E66.01 Morbid (severe) obesity due to excess calories; F41.9 Anxiety disorder, unspecified; I10 Essential (primary) hypertension; F17.200 Nicotine dependence, unspecified, uncomplicated; E88.81 Metabolic syndrome and other insulin resistance; G47.33 Obstructive sleep apnea (adult) (pediatric); E05.90 Thyrotoxicosis, unspecified without thyrotoxic crisis or storm
CPT/HCPCS: 36415; 71045; 80048; 80053; 82550; 82553; 82962; 83036; 83735; 83880; 84100; 84443; 84484; 85025; 85610; 85730; 87400; 90686; 93005; 93970; 94640; 94664; G0378; J0456; J0696; J1650; J1815; J2920; J2930; J3475; J7512